=== PATIENT | female | born 1950 | race Caucasian/White ===

== ENCOUNTER → 2025-02-09 | Outpatient (CLI) | payer MEDICARE, OTHER, SELFPAY ==
--- NOTE | 2025-02-09 10:15 | US_ITS ---
PROCEDURE: ABD LIMITED W/ ELASTOGRAPHY REASON FOR EXAM: LIVER FIBROSIS, HEMANGIOMA COMPARISON: None. TECHNIQUE: Right upper quadrant abdominal ultrasound. [facility] ElastQ Imaging shear wave elastography for non-invasive assessment of liver tissue stiffness. [facility] EPIQ Elite. FINDINGS: LIVER: Size: Unremarkable Length: 16.6 cm Echotexture: Normal Contour: Normal Lesions: Stable 1.8 cm 1.8 cm 1.9 cm hemangioma in the left lobe of the liver. Elastography: EQI Med: 6.4 kPa EQI Med Jaret: 1.45 m/s IQR/Med: 17.5 %* GALLBLADDER: Normal COMMON BILE DUCT: Dilated measuring up to 9 mm. . PANCREAS: Normal Visualized portions of the right kidney are unremarkable. No right upper quadrant ascites. US/ABD Limited w/ Elastography IMPRESSION: Mild hepatic fibrosis. Small hemangioma in the left lobe of the liver. Dilated common bile duct. Reference Values: SRU <1.37 m/s (5.7kPa): No to mild fibrosis 1.37 m/s - 2.2 m/s: Moderate to severe fibrosis >2.2 m/s (15kPa): Significant fibrosis / cirrhosis METAVIR Score F2 or higher: 1.34 m/s (5.7kPa) F3 or higher: 1.55 m/s (7.3kPa) F4: 1.80 m/s (10kPa) * If the IQR/Med is >30%, the variance in the measurements is a large and the a ccuracy of the measurement may be in question. Reading Location: [facility]
[2025-02-09 10:53] LABS: Hematocrit 44.7 % (37-47); Hemoglobin 14.6 g/dL (12.0-15.0); Immature Granulocytes Count 0.040 X10^3/uL (0.0-0.0); Mean Corp Hgb Conc 32.7 g/dL (32-36); Mean Corpuscular Volume 97.2 fL (81-99); Mean Platelet Vol. 9.4 fl (6.2-12.0); NRBC Flagged by Analyzer 0 % (0-5); Platelet Count 264 K/mm3 (150-450); RBC Distribution Width CV 12.5 % (11.6-14.6); RBC Distribution Width SD 44.8 fl (35.1-43.9); Red Blood Count 4.60 M/mm3 (4.2-5.4); White Blood Count 8.4 K/mm3 (4.4-11.0)
[2025-02-09 11:10] LABS: Prothrombin Time (Protime)PT. 14.2 SECONDS (11.7-14.9)
[2025-02-09 12:02] LABS: AST(SGOT) 16 U/L (<=31); Alanine Aminotransfer ALT/SGPT 9 U/L (<=34); Albumin, Serum 4.1 g/dL (3.4-4.8); Alkaline Phosphatase 64 U/L (35-104); Anion Gap 12 (5-15); BUN 16 mg/dL (4-19); BUN/Creat Ratio 19.0 RATIO (10-20); Bilirubin, Direct 0.51 mg/dL (0.00-0.30); Calcium,Total 9.2 mg/dL (7.6-11.0); Carbon Dioxide 22.0 mmol/L (21.0-32.0); Chloride 105 mmol/L (98-108); Cholesterol 153 mg/dL (<=200); Ferritin 157 ng/mL (22-378); Globulin 3.1 g/dL (2.2-4.2); Glucose 94 mg/dL (70-99); Low Density Lipoprotein Calc. 76 mg/dL; Potassium 4.1 mmol/L (3.3-5.1); Triglycerides 127 mg/dL; Very Low Density Lipoprotein 25 mg/dL (5-40); cholesterol:hdl ratio screen 2.99
[2025-02-09 16:46] LABS: Iron Binding Capacity,Total 261 ug/dL (250-450)
[2025-02-09 16:51] LABS: CRP < 3.00 mg/L (0.0-3.0); Iron 135 ug/dL (50-170); Iron Binding Capacity,Unsat 126 ug/dL (228-428); Magnesium 2.2 mg/dL (1.5-2.2)
[2025-02-10 15:08] LABS: ANTINUCLEAR ANTIBODIES DIRECT Negative (Negative)
[2025-02-11 11:08] LABS: Albumin 3.7 g/dL (2.9-4.4); Anti-Smooth Muscle ABS 16 Units (0-19); Gamma Globulin 1.4 g/dL (0.4-1.8); HEPATITIS B SURFACE AG Negative (Negative); Hep C Antibodies Non Reactive (Non Reactive); Immunoglobulin A 226 mg/dL (64-422); Immunoglobulin G 1570 mg/dL (586-1602); Immunoglobulin M 77 mg/dL (26-217); PROEL- TOTAL PROTEIN 6.9 g/dL (6.0-8.5)
== END | disposition home or self-care (01) ==
LOC: US 09:50
PROVIDERS: PCP Family Medicine; Referring Provider Internal Medicine; Visit Provider Internal Medicine
DX: C22.0 Liver cell carcinoma (principal); E11.10 Type 2 diabetes mellitus with ketoacidosis without coma; R16.0 Hepatomegaly, not elsewhere classified; K70.9 Alcoholic liver disease, unspecified; D18.03 Hemangioma of intra-abdominal structures; B19.9 Unspecified viral hepatitis without hepatic coma; E78.5 Hyperlipidemia, unspecified; E03.9 Hypothyroidism, unspecified
CPT/HCPCS: 36415; 76705; 76981; 80053; 80061; 80074; 82105; 82248; 82390; 82525; 82728; 82784; 83036; 83516; 83540; 83550; 83735; 84100; 84165; 84443; 85025; 85610; 86038; 86140; 86225; 86235; 86334

== ENCOUNTER → 2025-02-11 | Outpatient (CLI) | payer MEDICARE, OTHER, SELFPAY ==
[2025-02-14 18:09] LABS: Copper, Serum or Plasma 85 ug/dL (80-158)
== END | disposition home or self-care (01) ==
LOC: LAB 15:10
PROVIDERS: PCP Family Medicine; Referring Provider Internal Medicine; Visit Provider Internal Medicine
DX: R17 Unspecified jaundice (principal); D18.03 Hemangioma of intra-abdominal structures
CPT/HCPCS: 82525

== ENCOUNTER 2025-05-02 10:39 | Emergency (ER) | payer MEDICARE, OTHER, SELFPAY ==
[2025-05-02] VITALS (18 sets, daily range): BP systolic 150–201; BP diastolic 78–105; PULSE 55–79; RESP 8–23; TEMP 35.8–36.7; O2SAT 94–100; BMI 30.5
--- NOTE | 2025-05-02 11:00 | EX.ED.DYSGE1 ---
HPI History of Present Illness Chief Complaint: Edema Informant: patient Narrative Narrative: Patient is a 75-year-old female with a history of HTN presenting around 1030 am with upper lip swelling. - Reports upper lip swelling onset around 0200 today; no swelling present at bedtime. - Denies involvement of tongue or throat, and no dyspnea. - Denies chest tightness, diaphoresis, or hives. - Denies headache, syncope, or near-syncope. - Denies swelling in hands or feet today. - Denies pain, but notes discomfort due to swelling. - Has experienced pruritus on feet and other body parts; one episode of foot swelling after severe pruritus, which resolved spontaneously. - On lisinopril, taken at night for many years; no other antihypertensive medications. - Started on Toprol 6 months ago for palpitations and syncope; reports resolution of symptoms since initiation. - Had a similar episode of upper lip swelling about a month ago, which resolved without treatment; did not seek medical attention at that time. - No recent changes in medications or new medications. - Denies exposure to known allergens yesterday. [facility] Medical History Cervical lymphadenopathy Vitamin D deficiency Anxiety HLD (hyperlipidemia) Palpitations History of alcohol abuse Elevated bilirubin Home Medications ?Medication ?Instructions ?Recorded ?Last Taken ?Type cholecalciferol (vitamin D3) 50 2,000 unit PO DAILY 11/25/13 11/24/13 History mcg (2,000 unit) tablet (Vitamin D3) hydrochlorothiazide 25 mg tablet 25 mg PO DAILY 11/25/13 11/24/13 History loratadine 10 mg tablet (Allergy 10 mg PO DAILY 11/25/13 11/24/13 History Relief (loratadine)) triamcinolone acetonide 55 mcg 2 spray DAILY 11/25/13 11/24/13 History nasal spray aerosol (Nasal Allergy) citalopram 30 mg capsule 30 mg PO QDAY 07/10/24 Unknown History trazodone 50 mg tablet 50 mg PO QDAY 07/10/24 Unknown History metoprolol succinate 25 mg 25 mg PO QDAY 02/19/25 Unknown History tablet,extended release 24 hr amlodipine 5 mg tablet 5 mg PO DAILY #30 tabs 05/02/25 Unknown Rx Allergy/AdvReac Type Severity Reaction Status Date / Time lisinopril Allergy Severe Angioedema Verified 05/02/25 10:41 Family History Father Arthritis Hypertension CVA (cerebral vascular accident) Surgical History History of colonoscopy Social History Smoking Status: Never smoker alcohol intake: current alcohol intake frequency: a few times a week substance use type: does not use ROS ROS ED Constitutional Constitutional ED: Denies chills or fever(s) Eyes Eyes: Denies change in vision or diplopia ENT ENT ED: Reports as per HPI and lip swelling; Denies rhinorrhea, sore throat, throat swelling or tongue swelling Cardiovascular Cardiovascular: Denies chest pain, leg edema, lightheadedness, palpitations or syncope Respiratory/Chest Respiratory/Chest: Denies cough or dyspnea Gastrointestinal Gastrointestinal: Denies abdominal pain, diarrhea, nausea or vomiting Genitourinary Genitourinary ED: Denies dysuria or hematuria Musculoskeletal Musculoskeletal: Denies back pain or neck pain Integumentary Denies abscess or rash Neurologic Neurologic: Denies headache(s), paresthesias or weakness Psychiatric Psychiatric: Denies anxiety or suicidal thoughts EXAM Physical Exam Const Vital Signs: 05/02/25 10:41 05/02/25 10:48 05/02/25 11:11 Temperature 96.4 F L Temperature Source Temporal Pulse Rate 62 77 Respiratory Rate 18 18 Respiratory Effort Normal Respiratory Pattern Normal Blood Pressure 201/105 H Blood Pressure Mean 137 Pulse Ox 100 100 Oxygen Delivery Method Room Air Room Air 05/02/25 12:00 05/02/25 12:17 05/02/25 12:19 Temperature Temperature Source Pulse Rate 56 L 55 L 55 L Respiratory Rate 18 8 L 11 L Respiratory Effort Respiratory Pattern Blood Pressure 183/88 H Blood Pressure Mean 114 Pulse Ox 97 97 97 Oxygen Delivery Method Room Air 05/02/25 12:30 05/02/25 12:45 05/02/25 12:56 Temperature Temperature Source Pulse Rate 55 L 57 L 57 L Respiratory Rate 17 19 H 18 Respiratory Effort Respiratory Pattern Blood Pressure 173/87 H 173/87 H Blood Pressure Mean 113 115 Pulse Ox 96 97 98 Oxygen Delivery Method Room Air 05/02/25 13:00 05/02/25 13:15 05/02/25 13:30 Temperature Temperature Source Pulse Rate 56 L 58 L 62 Respiratory Rate 20 H 20 H 21 H Respiratory Effort Respiratory Pattern Blood Pressure 165/88 H 167/93 H Blood Pressure Mean 112 109 Pulse Ox 94 96 95 Oxygen Delivery Method 05/02/25 13:45 05/02/25 14:00 05/02/25 14:15 Temperature Temperature Source Pulse Rate 57 L 60 61 Respiratory Rate 13 23 H 19 H Respiratory Effort Respiratory Pattern Blood Pressure 170/79 H Blood Pressure Mean 105 Pulse Ox 99 94 98 Oxygen Delivery Method 05/02/25 14:29 05/02/25 14:30 05/02/25 14:45 Temperature Temperature Source Pulse Rate 78 76 79 Respiratory Rate 18 14 18 Respiratory Effort Respiratory Pattern Blood Pressure 170/79 H 153/91 H Blood Pressure Mean 109 110 Pulse Ox 98 96 97 Oxygen Delivery Method Room Air 05/02/25 15:13 Temperature 98.0 F Temperature Source Pulse Rate 79 Respiratory Rate 18 Respiratory Effort Respiratory Pattern Blood Pressure 150/78 H Blood Pressure Mean 102 Pulse Ox 97 Oxygen Delivery Method Positive well nourished and well developed General Appearance ED: well developed and NAD HEENT Reports moist mucous membranes normocephalic and atraumatic Eyes PERRL and EOMs intact bilaterally Neck full ROM and supple Resp normal respiratory effort and clear to auscultation bilaterally Cardio regular rate, regular rhythm and no murmurs GI non-tender and non-distended Auscultation: normoactive bowel sounds Palpation: soft Back/Spine no CVA tenderness General Back: other FROM Extremity normal to inspection General Extremety ED: Negative for edema, pulses abnormal or tenderness General Extremity: Negative for edema or pulses abnormal Neuro oriented x3, CN's II-XII intact bilaterally and no sensory deficits noted Sensorium / Orientation: awake and alert Motor Exam: strength 5/5 throughout Skin no rashes or lesions noted and no wounds MDM MDM MDM Narrative Medical decision making narrative: Patient appears to have angioedema of the upper lip only. Her tongue and throat are not involved. She has no stridor or dyspnea, and her lungs are clear with no evidence of peripheral edema. This presentation is less likely anaphylactic and more likely angioedema due to an HARDY inhibitor, given her history. She will be observed here while we administer IV Solumedrol, Pepcid, and Benadryl, and we will monitor her closely. It is noted that her blood pressure is very high despite taking lisinopril last night, and she does not have any specific symptoms of the hypertension. Because we are giving these IV medications, including Benadryl, I will continue to monitor her blood pressure for now. The patient was observed for almost five hours while receiving the above medications. We evaluated her clinically several times. She showed mild improvement but did not completely resolve, with no worsening and no new symptoms. Her high blood pressure decreased without the need for emergent antihypertensives. Near discharge, it was 150/78 mmHg. I discussed her care with the on-call physician for Dr. Ruiz, who advised changing her lisinopril 20 mg to amlodipine 5 mg daily until she follows up. We plan to see her in the office today. I instructed the patient to discard the lisinopril or take it to a pharmacy for proper disposal, emphasizing that it is presumed to be the cause of this reaction unless proven otherwise. She understands, and we discussed reasons for her to return. Management Discussion w/another healthcare provider: PCP Discharge Plan Triage Chief Complaint: Edema ED Provider: Lex Chao Dx/Rx/DC Orders Clinical Impression: HARDY inhibitor-aggravated angioedema Instructions: ED Angioedema Prescriptions: New amlodipine 5 mg tablet 5 mg PO DAILY Qty: 30 0RF Continued citalopram 30 mg capsule 30 mg PO QDAY trazodone 50 mg tablet 50 mg PO QDAY metoprolol succinate 25 mg tablet extended release 24 hr 25 mg PO QDAY hydrochlorothiazide 25 MG tablet 25 mg PO DAILY Patient Comments: BLOOD PRESSURE loratadine [Allergy Relief (loratadine)] 10 MG tablet 10 mg PO DAILY Patient Comments: ALLERGIES, POST NASAL DRIP cholecalciferol (vitamin D3) [Vitamin D3] 2,000 UNIT tablet 2,000 unit PO DAILY Patient Comments: VITAMIN SUPPLEMENT triamcinolone acetonide [Nasal Allergy] 1 SPRAY aerosol,spray 2 spray NASAL DAILY Discontinued lisinopril 20 mg tablet 20 mg PO QDAY Primary Care Provider: Misty Ruiz Referrals: Misty Ruiz DO [Primary Care Provider, Medical] - 1-2 Weeks Print Language: Slovenian Disposition Disposition: Home, Self Care
--- OUTSIDE RECORDS SUMMARY | 2025-05-02 11:00 | XMS RPT_ITS | CCD ---
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 Name Role Phone Unavailable Primary Care Provider Unavailabl e DAISY PENN DO Primary Care Physician DAISY PENN DO Primary Care Physician DAISY PENN DO Attending Unavailable FILI DO, DAISY Primary Care Unavailable FILI DO, DAISY Attending Unavailable FILI DO, DAISY Primary Care Unavailable FILI DO, DAISY Attending Unavailable FILI DO, DAISY Primary Care Unavailable FILI DO, DAISY Attending Unavailable FILI DO, DAISY Primary Care Unavailable FILI DO, DAISY Attending Unavailable FILI DO, DAISY Primary Care Unavailable FILI DO, DAISY Attending Unavailable FILI DO, DAISY Primary Care Unavailable FILI DO, DAISY Attending Unavailable FILI DO, DAISY Primary Care Unavailable FILI DO, DAISY Primary Care Unavailable FILI DO, DAISY Attending Unavailable FILI DO, DAISY Attending Unavailable FILI DO, DAISY Primary Care Unavailable FILI DO, DAISY Attending Unavailable FILI DO, DAISY Primary Care Unavailable Jeffrey TAVAREZ, Dr. Huang Attending Provider [phone] Dr. Sal Murphy MD Referring Provider [phone] Dr. Daisy Penn DO Primary Care Provider [phone] Dr. Daisy Penn DO Referring Provider Daisy Penn Referring Unavailable Sal Murphy Attending Unavailable Daisy Penn Primary Care Unavailable Sal Murphy Referring Unavailable Sal Murphy Attending Unavailable Daisy Penn Primary Care Unavailable Sal Murphy Referring Unavailable Sal Murphy Attending Unavailable Sal Murphy Attending Unavailable Daisy Penn Referring Unavailable Daisy Penn Primary Care Unavailable Medications Current Medications Medication Drug Class(es) Dates Sig (Normalized) Sig (Original) calcium carbonate 1500 mg oral tablet (8 sources) Start: 01-30-2019 calcium (as carbonate) 600 mg oral tablet Dose : 600 mg = 1 tab(s), Oral, qDay, 0 Refill(s) Start Date: 01/30/19 Status: Ordered cholecalciferol 0.05 mg oral tablet (4 sources) Vitamin D Start: 11-25-2013 take 1 tablet by mouth once daily Cholecalciferol (Vitamin D3) (Vitamin D3) 2,000 UNIT tablet Active 2000 U PO DAILY November 25, 2013 12:00am Start: 12-18-2011 take 1 tablet by ajay th once daily Cholecalciferol, Vitamin D3, 5,000 unit Tab Take 1 tablet by mouth once daily. 0 12/18/2011 Active Comment on above: Take 1 tablet by ajay th once daily. Citalopram (15 sources) Serotonin Reuptake Inhibitor Start: 07-10-2024 take 1 capsule by mouth once daily Citalopram 30 mg capsule Active 30 mg PO daily July 10, 2024 1:00am Start: 02-19-2024 citalopram 30 mg oral capsule Dose : 30 mg = 1 cap(s), Oral, qDay, increased dose, # 90 cap(s), 1 Refill(s), Pharmacy: [facility] #30, Mild recurrent major depression Anxiety, 159.5, cm, 02/19/24 13:26:00 EDT, Height, kg, 02/19/24 13:26:00 EDT, Dosing Weight Start Date: 02/19/24 Status: Ordered Start: 11-25-2013 End: 07-10-2024 take 1 tablet by mouth at bedtime Citalopram 20 MG tablet Discontinued 20 mg PO AT BEDTIME November 25, 2013 12:00am July 10, 2024 9:38am Comment on above: Take 1 tablet by ajay th once daily. hydroCHLOROthiazide 25 mg oral tablet (12 sources) Thiazide Diuretic Start: hydroCHLOROthiazide 25 mg oral tablet Dose : 25 mg = 1 tab(s), Oral, qDay, # 90 tab(s), 3 Refill(s), Pharmacy: [facility] #30, Hypertension, 160.4, cm, 10/16/23 14:01:00 EDT, Height, kg, 10/16/23 14:01:00 EDT, Dosing Weight Start Date: 10/16/23 Status: Ordered Start: 11-25-2013 hydroCHLOROthi azide 25 mg oral tablet Dose : 25 mg = 1 tab(s), Oral, qDay, TAKE 1 TABLET BY MOUTH EVERY DAY, # 90 tab(s), 1 Refill(s), Pharmacy: [facility] #30, Hypertension, 158.5, cm, 06/19/23 15:00:00 EST, Height, kg, 06/19/23 15:00:00 EST, Dosing Weight Start Date: 06/19/23 Status: Ordered Comment on above: Take 1 tablet by ajay th once daily. lisinopril 20 mg oral tablet (15 sources) Angiotensin Converting Enzyme Inhibitor Start: 07-10-2024 take 1 tablet by mouth once daily Lisinopril 20 mg tablet Active 20 mg PO daily July 10, 2024 1:00am Start: 10-16-2023 lisinopril 20 mg oral tablet Dose : 20 mg = 1 tab(s), Oral, qDay, # 90 tab(s), 3 Refill(s), Pharmacy: [facility] #30, Hypertension, 160.4, cm, 10/16/23 14:01:00 EDT, Height, kg, 10/16/23 14:01:00 EDT, Dosing Weight Start Date: 10/16/23 Status: Ordered Start: 06-19-2023 lisinopril 20 mg oral tablet Dose : 20 mg = 1 tab(s), Oral, qDay, # 90 tab(s), 1 Refill(s), Pharmacy: [facility] #30, Hypertension, 158.5, cm, 06/19/23 15:00:00 EST, Height, kg, 06/19/23 15:00:00 EST, Dosing Weight Start Date: 06/19/23 Status: Ordered Start: 12-26-2022 lisinopril 20 mg oral tablet Dose : 20 mg = 1 tab(s), Oral, qDay, # 90 tab(s), 1 Refill(s), Pharmacy: [facility] #30, Hypertension, 160, cm, 12/26/22 14:08:00 EDT, Height, kg, 12/26/22 14:08:00 EDT, Dosing Weight Start Date: 12/26/22 Status: Ordered Start: 11-25-2013 End: 07-10-2024 take 1 tablet by mouth once daily Lisinopril 5 MG tablet Discontinued 5 mg PO DAILY November 25, 2013 12:00am July 10, 2024 9:38am Comment on above: Take 1 tablet by ajay th once daily. loratadine 10 mg oral tablet (4 sources) Start: 1 take 1 tablet by mouth once daily Loratadine (Allergy Relief (Loratadine)) 10 MG tablet Active 10 mg PO DAILY November 25, 2013 12:00am Comment on above: Take 1 tablet by ajay once daily. TAKE ONE(1) TABLET DAILY FOR ALLERGIES, POST NASAL DRIP 24 hr metoprolol succinate 25 mg extended release oral tablet (3 sources) beta-Adrenergic [place] Start: 5 take 1 tablet by mouth once daily Metoprolol Succinate 25 mg tablet extended release 24 hr Active 25 mg PO daily February 19, 2025 12:00am traZODone hydrochloride 50 mg oral tablet (15 sources) Serotonin Reuptake Inhibitor Start: take 1 tablet by mouth once daily Trazodone 50 mg tablet Active 50 mg PO daily July 10, 2024 1:00am Start: 02-19-2024 traZODone 50 m g oral tablet Dose : 50 mg = 1 tab(s), Oral, qHS, # 90 tab(s), 1 Refill(s), Pharmacy: [facility] #30, Mild recurrent major depression Anxiety, 159.5, cm, 02/19/24 13:26:00 EDT, Height, kg, 02/19/24 13:26:00 EDT, Dosing Weight Start Date: 02/19/24 Status: Ordered Start: 10-16-2023 traZODone 50 m g oral tablet Dose : 50 mg = 1 tab(s), Oral, qHS, # 90 tab(s), 1 Refill(s), Pharmacy: [facility] #30, Mild recurrent major depression Anxiety, 160.4, cm, 10/16/23 14:01:00 EDT, Height, kg, 10/16/23 14:01:00 EDT, Dosing Weight Start Date: 10/16/23 Status: Ordered Start: 06-19-2023 traZODone 50 m g oral tablet Dose : 50 mg = 1 tab(s), Oral, qHS, # 90 tab(s), 1 Refill(s), Pharmacy: [facility] #30, Mild recurrent major depression Anxiety, 158.5, cm, 06/19/23 15:00:00 EST, Height, kg, 06/19/23 15:00:00 EST, Dosing Weight Start Date: 06/19/23 Status: Ordered Start: 12-26-2022 traZODone 50 m g oral tablet Dose : 50 mg = 1 tab(s), Oral, qHS, # 90 tab(s), 1 Refill(s), Pharmacy: [facility] #30, Anxiety depression, 160, cm, 12/26/22 14:08:00 EDT, Height, kg, 12/26/22 14:08:00 EDT, Dosing Weight Start Date: 12/26/22 Status: Ordered Start: 03-26-2015 take 1 tablet by ajay th once daily at bedtime traZODone (DESYREL) 50 mg tablet Indications: Depressive disorder, not elsewhere classified Take 1 tablet by mouth daily at bedtime. 90 tablet 3 03/26/2015 Active Start: 11-25-2013 End: 07-10-2024 take 1 tablet by mouth at bedtime Trazodone 100 MG tablet Discontinued 100 mg PO AT BEDTIME November 25, 2013 12:00am July 10, 2024 9:38am Comment on above: Take 1 tablet by ajay th daily at bedtime. triamcinolone acetonide 0.055 mg/actuat metered dose nasal spray (3 sources) Corticosteroid Start: 11-25-2013 Triamcinolone Acetonide (Nasal Allergy) 1 SPRAY aerosol,spray Active 2 NMA NASAL DAILY November 25, 2013 12:00am Vitamin D3 (8 sources) Start: 01-30-2019 Vitamin D3 Dose : 5,000 unit(s) = 1 cap(s), Oral, qDay, 0 Refill(s) Start Date: 01/30/19 Status: Ordered Completed/Discontinued Medications Medication Drug Class(es) Dates Sig (Normalized) Sig (Original) [id number] actuat albuterol 0.09 mg/actuat metered dose inhaler (1 source) beta2-Adrenergic Agonist Start: 09-03-2015 take 2 puff(s) by inhalation every six hours as needed for wheezing albuterol HFA (PROVENTIL HFA, VENTOLIN HFA) 90 mcg/actuation inhaler Inhale 2 Puffs as instructed every 6 hours as needed for Wheezing/Shortness of Breath. 1 Inhaler 2 09/03/2015 Active Comment on above: Inhale 2 Puffs as in structed every 6 hours as needed for Wheezing/Shortness of Breath. benzonatate 100 mg oral capsule (2 sources) Non-narcotic Antitussive Start: 09-03-2015 take 1 capsule by mouth every eight hours as needed benzonatate (TESSALON PERLES) 100 mg capsule Take 1 capsule by mouth three times daily as needed for Cough. 20 capsule 0 09/03/2015 Active Start: 08-24-2014 take 1 capsule by mo uth every eight hours as needed Benzonatate (TESSALON) 200 mg capsule Take 200 mg by mouth three times daily as needed for Cough. 30 capsule 1 08/24/2014 Active Comment on above: Take 200 mg by mouth three times daily as needed for Cough. Take 1 capsule by mo uth three times daily as needed for Cough. Problems Active Problems Problem Classification Problem Date Documented Da te Episodic/Chronic Alcohol-related disorders (14 sources) Nondependent alcohol abuse, continuous; Translations: [Alcohol abuse, uncomplicated] Onset: 12-18-2011 12-18-2011 Chronic Anxiety disorders (11 sources) Mixed anxiety and depressive disorder; Translations: [Anxiety] Onset: 10-16-2023 01-29-2019 Chronic Cancer of liver and intrahepatic bile duct (1 source) Liver cell carcinoma; Translations: [Liver cell carcinoma] Onset: 03-06-2025 Chronic Cardiac dysrhythmias (1 source) Palpitations 06-20-2024 Episodic Coagulation and hemorrhagic disorders (1 source) Thrombocytopenia, unspecified; Translations: [Thrombocytopenia, unspecified] Onset: 08-19-2024 Chronic Diabetes mellitus with complications (1 source) Type 2 diabetes mellitus with ketoacidosis without coma; Translations: [Type 2 diabetes mellitus with ketoacidosis without coma] Onset: 08-19-2024 Chronic Disorders of lipid metabolism (12 sources) Hyperlipidemia; Translations: [Hyperlipidemia, unspecified] Onset: 10-16-2023 02-16-2021 Chronic Essential hypertension (18 sources) Essential hypertension; Translations: [Essential (primary) hypertension] Onset: 10-16-2023 10-11-2017 Chronic Lymphadenitis (9 sources) Cervical lymphadenopathy 11-16-2020 Episodic Malaise and fatigue (9 sources) Fatigue 11-16-2020 Episodic Mood disorders (10 sources) Depressive disorder; Translations: [Other specified depressive episodes] Onset: 10-16-2023 11-08-2005 Chronic Nutritional deficiencies (10 sources) Vitamin D deficiency; Translations: [Vitamin D deficiency, unspecified] Onset: 12-18-2011 12-18-2011 Chronic Other and unspecified benign neoplasm (6 sources) Hemangioma of liver; Translations: [Hemangioma of intra-abdominal structures] 08-11-2024 Episodic Other gastrointestinal disorders (6 sources) Stool color abnormal 04-17-2023 Episodic Other liver diseases (4 sources) Fatty (change of) liver, not elsewhere classified; Translations: [Metabolic dysfunction-associate d steatotic liver disease (MASLD)] 02-19-2025 Chronic Other liver diseases (9 sources) Elevated total bilirubin 12-26-2022 Episodic Other liver diseases (1 source) Jaundice; Translations: [Unspecified jaundice] Episodic Other liver diseases (3 sources) Increased bilirubin level; Translations: [Unspecified jaundice] 08-11-2024 Episodic Other nutritional; endocrine; and metabolic disorders (3 sources) Body mass index 30+ - obesity 10-16-2023 Chronic Other screening for suspected conditions (not mental disorders or infectious disease) (9 sources) Viral screening status 07-05-2022 Episodic Other upper respiratory disease (1 source) Allergic rhinitis; Translations: [Allergic rhinitis, unspecified] 11-08-2005 Chronic Residual codes; unclassified (9 sources) Needs influenza immunization 05-20-2020 Episodic Residual codes; unclassified (9 sources) Requires vaccination 05-20-2020 Episodic Syncope (4 sources) Syncope and collapse; Translations: [Syncope] 06-20-2024 Episodic Thyroid disorders (1 source) Hypothyroidism, unspecified; Translations: [Hypothyroidism, unspecified] Onset: 08-19-2024 Chronic Unclassified (9 sources) Never used tobacco 07-05-2022 Unclassified (20 sources) Patient encounter status 02-15-2021 Past or Other Problems Problem Classification Problem Date Documented Da te Episodic/Chronic Diabetes mellitus without complication (1 source) Hyperglycemia; Translations: [Hyperglycemia, unspecified] Onset: 12-18-2011 12-18-2011 Episodic Hepatitis (1 source) Unspecified viral hepatitis without hepatic coma; Translations: [Unspecified viral hepatitis without hepatic coma] Onset: 08-19-2024 Episodic Other and unspecified benign neoplasm (1 source) Hemangioma of intra-abdominal structures; Translations: [Hemangioma of intra-abdominal structures] Onset: 08-19-2024 Episodic Other liver diseases (3 sources) Unspecified jaundice; Translations: [Unspecified jaundice] Onset: 10-16-2023 Episodic Other liver diseases (1 source) Hepatomegaly, not elsewhere classified; Translations: [Hepatomegaly, not elsewhere classified] Onset: 08-19-2024 Episodic Results Test Name Value Interpretation Reference Range Facility Gastroenterology Visit Repor ton 02-19-2025 Gastroenterology Visit Report [facility] [address] [place] [address] OFFICE VISIT Date of Service: 02/19/25 MR#: [id number] Acct: [id number] Name: YVES ORR Rep #: [id number] : 1950 Provider: Dr. 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 Accompanied by: Self Is patient in pain?: No Allergies No Known Allergies Allergy (Verified 02/19/25 13:42) Medications ???Medication ???Instructions ???Recorded ???Confirmed ???Type cholecalciferol (vitamin D3) 50 2,000 unit PO DAILY 11/25/1302/19 History mcg (2,000 unit) tablet (Vitamin D3) hydrochlorothiazide 25 mg tablet 25 mg PO DAILY 11/25/13 02/19/25 H istory loratadine 10 mg tablet (Allergy 10 mg PO DAILY 11/25/13 02/19/25 H istory Relief (loratadine)) triamcinolone acetonide 55 mcg 2 spray DAILY 11/25/13 02/19/25 Hi story nasal spray aerosol (Nasal Allergy) citalopram 30 mg capsule 30 mg PO QDAY 07/10/24 02/19/25 Hi story lisinopril 20 mg tablet 20 mg PO QDAY 07/10/24 02/19/25 Hi story trazodone 50 mg tablet 50 mg PO QDAY 07/10/24 02/19/25 Hi story metoprolol succinate 25 mg 25 mg PO QDAY 02/19/25 02/19/25 Hi story tablet,extended release 24 hr Have you fallen in the past year?: No PFSH Medical History Cervical lymphadenopathy Vitamin D deficiency Anxiety HLD (hyperlipidemia) Palpitations History of alcohol abuse Elevated bilirubin Surgical History History of colonoscopy Family History Father Arthritis Hypertension CVA (cerebral vascular accident) Social History Smoking Status: Never smoker alcohol intake: current alcohol intake frequency: a few times a week substance use type: does not use HPI HPI Chief Complaint: Follow Up Details: YVES ORR, is a 74 F who presents to the office today for Follow up OV 1.27.25- PCP referred for elevated bilirubin and hx of alcohol abuse. PMH includes HTN, anxiety, depression, HLD. Pt states she overall feels well. States she currently drinks 5 beers a week. Denies dizziness, SOB, Confusion, swelling, abdominal pain, bowel changes. Medical record from PCP office reviewed. TB 1.6 in June 2024 and was 1.2 in September 2023. Serum bilirubin 3.5. Liver enzymes ALT, AST, ALP in normal range. Glucose 91. Fasting profile TG 108, TC 161, LDL 91 in normal range. TSH 2.43. Vitamin D 25-hydroxy normal. No PT/INR. ?US abd/ elastography 02.09.25- Liver measures 16.6cm, Stiffness 6.4 kPa 02.09.25 Fib-4??? 1.52 ?MELDna-??? 9 OV 8.25 - Patient is here for a follow up and states she is also here to go over her blood work and she also had a ultrasound that was done here at [facility]. Patient states that she has no symptoms and she has been doing good. ROS Const Constitutional: Positive for fatigue; No fever(s), weakness or weight change ENT ENT: No difficulty swallowing Resp Respiratory: No shortness of breath or wheezing Cardio Cardiology: Positive for lightheadedness; No chest pain at rest or dyspnea on exertion Gastro GI: No abdominal pain, belching, bloating, change in bowel habits, change in stool character, coffee ground emesis, constipation, cramping, diarrhea, heartburn, difficulty swallowing, feeling full early, excessive flatus, incontinent of stools, Vomiting blood/hematemesis, Blood in stool, loose stools, Black,tarry stools, nausea/dyspepsia, pain with swallowing, vomiting or other Genitourinary-Female: No difficulty urinating or burning urination Musc Musculoskeletal: No joint pain Skin Skin: No yellowing of the eye or itchy eyes Neuro Neurology: No abnormal movements, behavioral changes, weakness or lack of coordination Psych Psychiatric: Positive for anxiety, No behavioral changes and Positive for depression Endo Endocrine: Positive for fatigue; No weight change Aller/Imm Allergy/Immunologic: No itchy eyes or wheezing Sridhar/Lymp Hematologic/Lymphatic: No easy bleeding or easy bruising Exam Const General: cooperative, no acute distress and well developed Nutritional Appearance: obese Orientation: alert, awake and oriented x3 Other: BMI 3 (more content not included)... Normal [facility] Copper, Serum or Plasmaon COPPER, SERUM 85 ug/dL Normal 80-158 [facility] Comment on above: Order Comment: Test( s) [id number], Serum or Plasma was developed and its performance characteristics determined by [employer]. It has not been cleared or approved by the Food and Drug Administration. Result Comment: Dete ction Limit = 5 Performed at: [address] [id number] Systems Integration Advisor: Shobha Yañez MD, Phone: [phone] Performed By: #### L 3300.0100 #### [facility] [address] [place], [place], [id number] AFP, Tumor Markeron 02-12-20 AFP TUMOR KIM 2.8 ng/mL Normal 0.0-9.2 [facility] Comment on above: Order Comment: Test( s) [id number], Serum or Plasmawas developed and its performance characteristicsdetermined by [employer]. It has not been cleared or approvedby the Food and Drug Administration.NSerum ELF test Result Comment: [employer] Electrochemiluminescence Immunoassay (ECLIA) Values obtained with different assay methods or kits cannot be used interchangeably. Results cannot be interpreted as absolute evidence of the presence or absence of malignant disease. This test is not interpretable in females. Performed By: #### L [id number], L800.1280, L501.5200, L503.6550, L3300.0700, L501.6710, L100.0100, L300.3900, L500.4050, L803.2200, L3100.3425, L3000.0375, L3100.5450, L501.2300, L501.4700, L501.9985, L3400.0700, L500.4100, L3410.9992, L503.6030 ####[facility] [address] [place], [place], [address] ODALYS w/ Reflex Mult Confirmon 02-11-2025 ANTI-DNA (DS)AB TNP Normal [facility] Comment on above: Performed By: #### L [id number], L800.1280, L501.5200, L503.6550, L3300.0700, L501.6710, L100.0100, L300.3900, L500.4050, L803.2200, L3100.3425, L3000.0375, L3100.5450, L501.2300, L501.4700, L501.9985, L3400.0700, L500.4100, L3410.9992, L503.6030 #### [facility] [address] [place], [address] ANTI-SS-A TNP Normal [facility] Comment on above: Performed By: #### L [id number], L800.1280, L501.5200, L503.6550, L3300.0700, L501.6710, L100.0100, L300.3900, L500.4050, L803.2200, L3100.3425, L3000.0375, L3100.5450, L501.2300, L501.4700, L501.9985, L3400.0700, L500.4100, L3410.9992, L503.6030 #### [facility] [address] [place], [address] ANTI-SS-B TNP Normal [facility] Comment on above: Performed By: #### L [id number], L800.1280, L501.5200, L503.6550, L3300.0700, L501.6710, L100.0100, L300.3900, L500.4050, L803.2200, L3100.3425, L3000.0375, L3100.5450, L501.2300, L501.4700, L501.9985, L3400.0700, L500.4100, L3410.9992, L503.6030 #### [facility] [address] [place], [address] Anti-Smooth Muscle ABSon ANTISMOOTH MUSC 16 Units Normal 0-19 [facility] Comment on above: Order Comment: Test( s) [id number], Serum or Plasmawas developed and its performance characteristicsdetermined by [employer]. It has not been cleared or approvedby the Food and Drug Administration. Result Comment: Nega tive 0 - 19 Weak positive 20 - 30 Moderate to strong positive >30 Actin Antibodies are found in 52-85% of patients with autoimmune hepatitis or chronic active hepatitis and in 22% of patients with primary biliary cirrhosis. Performed By: #### L [id number], L800.1280, L501.5200, L503.6550, L3300.0700, L501.6710, L100.0100, L300.3900, L500.4050, L803.2200, L3100.3425, L3000.0375, L3100.5450, L501.2300, L501.4700, L501.9985, L3400.0700, L500.4100, L3410.9992, L503.6030 ####[facility] [address] [place], [address] Ceruloplasminon 02-11-2025 CERULOPLASMIN 20.9 mg/dL Normal 19.0-39.0 [facility] Comment on above: Order Comment: Test( s) [id number], Serum or Plasmawas developed and its performance characteristicsdetermined by [employer]. It has not been cleared or approvedby the Food and Drug Administration. Performed By: #### L 501.9520, L800.1280, L501.5200, L503.6550, L3300.0700, L501.6710, L100.0100, L300.3900, L500.4050, L803.2200, L3100.3425, L3000.0375, L3100.5450, L501.2300, L501.4700, L501.9985, L3400.0700, L500.4100, L3410.9992, L503.6030 ####[facility] [address] [place], [place], [id number] Hepatitis Panel Acuteon 07-3 COMMENT Comment Normal . [facility] Comment on above: Order Comment: Test( s) [id number], Serum or Plasmawas developed and its performance characteristicsdetermined by [employer]. It has not been cleared or approvedby the Food and Drug Administration. Result Comment: Not infected with HCV unless early or acute infection is suspected (which may be delayed in an immunocompromised individual), or other evidence exists to indicate HCV infection. Performed By: #### L 501.9520, L800.1280, L501.5200, L503.6550, L3300.0700, L501.6710, L100.0100, L300.3900, L500.4050, L803.2200, L3100.3425, L3000.0375, L3100.5450, L501.2300, L501.4700, L501.9985, L3400.0700, L500.4100, L3410.9992, L503.6030 ####[facility] [address] [facility] [place], [address] HEP B CORE,IgM Negative Normal Negative [facility] Comment on above: Order Comment: Test( s) [id number], Serum or Plasmawas developed and its performance characteristicsdetermined by [employer]. It has not been cleared or approvedby the Food and Drug Administration. Performed By: #### L 501.9520, L800.1280, L501.5200, L503.6550, L3300.0700, L501.6710, L100.0100, L300.3900, L500.4050, L803.2200, L3100.3425, L3000.0375, L3100.5450, L501.2300, L501.4700, L501.9985, L3400.0700, L500.4100, L3410.9992, L503.6030 ####[facility] [address] [facility] [place], [place], [id number] HEP B SURF AG Negative Normal Negative [facility] Comment on above: Order Comment: Test( s) [id number], Serum or Plasmawas developed and its performance characteristicsdetermined by [employer]. It has not been cleared or approvedby the Food and Drug Administration. Performed By: #### L 501.9520, L800.1280, L501.5200, L503.6550, L3300.0700, L501.6710, L100.0100, L300.3900, L500.4050, L803.2200, L3100.3425, L3000.0375, L3100.5450, L501.2300, L501.4700, L501.9985, L3400.0700, L500.4100, L3410.9992, L503.6030 ####[facility] [address] [facility] [place], [address] HEP C VIRUS AB Non-Reactive Normal Non Reactive [facility] Comment on above: Order Comment: Test( s) 524559-Aodkqa, Serum or Plasmawas developed and its performance characteristicsdetermined by [employer]. It has not been cleared or approvedby the Food and Drug Administration. Performed By: #### L 501.9520, L800.1280, L501.5200, L503.6550, L3300.0700, L501.6710, L100.0100, L300.3900, L500.4050, L803.2200, L3100.3425, L3000.0375, L3100.5450, L501.2300, L501.4700, L501.9985, L3400.0700, L500.4100, L3410.9992, L503.6030 ####[facility] [address] [facility] [place], [address] HEPATITIS A-IgM Negative Normal Negative [facility] Comment on above: Order Comment: Test( s) 734555-Ejjami, Serum or Plasmawas developed and its performance characteristicsdetermined by [employer]. It has not been cleared or approvedby the Food and Drug Administration. Result Comment: A ne gative anti-HAV IgM result suggests no recent or current HAV infection. Performed By: #### L 501.9520, L800.1280, L501.5200, L503.6550, L3300.0700, L501.6710, L100.0100, L300.3900, L500.4050, L803.2200, L3100.3425, L3000.0375, L3100.5450, L501.2300, L501.4700, L501.9985, L3400.0700, L500.4100, L3410.9992, L503.6030 ####[facility] [address] [facility]. [place], [place], [id number] SAUL + Protein Elect, Serumon 02-11-2025 Albumin [Mass/Vol] 3.7 g/dL Normal 2.9-4.4 [facility] Comment on above: Order Comment: Test( s) 527308-Bkjqek, Serum or Plasmawas developed and its performance characteristicsdetermined by [employer]. It has not been cleared or approvedby the Food and Drug Administration.YSerum ELF test Performed By: #### L 501.9520, L800.1280, L501.5200, L503.6550, L3300.0700, L501.6710, L100.0100, L300.3900, L500.4050, L803.2200, L3100.3425, L3000.0375, L3100.5450, L501.2300, L501.4700, L501.9985, L3400.0700, L500.4100, L3410.9992, L503.6030 ####[facility] [address] [facility]. [place], [place], [id number] Albumin/Globulin [Mass ratio] 1.2 {ratio} Normal 0.7-1.7 [facility] Comment on above: Order Comment: Test( s) 811197-Sfuswn, Serum or Plasmawas developed and its performance characteristicsdetermined by [employer]. It has not been cleared or approvedby the Food and Drug Administration.YSerum ELF test Performed By: #### L 501.9520, L800.1280, L501.5200, L503.6550, L3300.0700, L501.6710, L100.0100, L300.3900, L500.4050, L803.2200, L3100.3425, L3000.0375, L3100.5450, L501.2300, L501.4700, L501.9985, L3400.0700, L500.4100, L3410.9992, L503.6030 ####[facility] [address] [place], [address] DFZEL-4-BJPG 0.2 g/dL Normal 0.0-0.4 [facility] Comment on above: Order Comment: Test( s) 765050-Robtta, Serum or Plasmawas developed and its performance characteristicsdetermined by [employer]. It has not been cleared or approvedby the Food and Drug Administration.YSerum ELF test Performed By: #### L 501.9520, L800.1280, L501.5200, L503.6550, L3300.0700, L501.6710, L100.0100, L300.3900, L500.4050, L803.2200, L3100.3425, L3000.0375, L3100.5450, L501.2300, L501.4700, L501.9985, L3400.0700, L500.4100, L3410.9992, L503.6030 ####[facility] [address] [place], [address] TBXHP-4-SAPI 0.6 g/dL Normal 0.4-1.0 [facility] Comment on above: Order Comment: Test( s) 971378-Jqebnv, Serum or Plasmawas developed and its performance characteristicsdetermined by [employer]. It has not been cleared or approvedby the Food and Drug Administration.YSerum ELF test Performed By: #### L 501.9520, L800.1280, L501.5200, L503.6550, L3300.0700, L501.6710, L100.0100, L300.3900, L500.4050, L803.2200, L3100.3425, L3000.0375, L3100.5450, L501.2300, L501.4700, L501.9985, L3400.0700, L500.4100, L3410.9992, L503.6030 ####[facility] [address] [place], [place], [id number] BETA GLOBULIN 0.9 g/dL Normal 0.7-1.3 [facility] Comment on above: Order Comment: Test( s) 679377-Ilhlsg, Serum or Plasmawas developed and its performance characteristicsdetermined by [employer]. It has not been cleared or approvedby the Food and Drug Administration.YSerum ELF test Performed By: #### L 501.9520, L800.1280, L501.5200, L503.6550, L3300.0700, L501.6710, L100.0100, L300.3900, L500.4050, L803.2200, L3100.3425, L3000.0375, L3100.5450, L501.2300, L501.4700, L501.9985, L3400.0700, L500.4100, L3410.9992, L503.6030 ####[facility] [address] [place], [place], [address] GAMMA GLOBULIN 1.4 g/dL Normal 0.4-1.8 [facility] Comment on above: Order Comment: Test( s) 804626-Dghhvq, Serum or Plasmawas developed and its performance characteristicsdetermined by [employer]. It has not been cleared or approvedby the Food and Drug Administration.YSerum ELF test Performed By: #### L 501.9520, L800.1280, L501.5200, L503.6550, L3300.0700, L501.6710, L100.0100, L300.3900, L500.4050, L803.2200, L3100.3425, L3000.0375, L3100.5450, L501.2300, L501.4700, L501.9985, L3400.0700, L500.4100, L3410.9992, L503.6030 ####[facility] [address] [facility] [place], [address] Globulin (S) [Mass/Vol] 3.2 g/dL Normal 2.2-3.9 [facility] Comment on above: Order Comment: Test( s) 116528-Ursovt, Serum or Plasmawas developed and its performance characteristicsdetermined by [employer]. It has not been cleared or approvedby the Food and Drug Administration.YSerum ELF test Performed By: #### L 501.9520, L800.1280, L501.5200, L503.6550, L3300.0700, L501.6710, L100.0100, L300.3900, L500.4050, L803.2200, L3100.3425, L3000.0375, L3100.5450, L501.2300, L501.4700, L501.9985, L3400.0700, L500.4100, L3410.9992, L503.6030 ####[facility] [address] [facility]. [place], [place], [id number] SAUL RESULT,S Comment Normal . [facility] Comment on above: Order Comment: Test( s) 257735-Ksnccl, Serum or Plasmawas developed and its performance characteristicsdetermined by [employer]. It has not been cleared or approvedby the Food and Drug Administration.YSerum ELF test Result Comment: No m onoclonality detected. Performed By: #### L 501.9520, L800.1280, L501.5200, L503.6550, L3300.0700, L501.6710, L100.0100, L300.3900, L500.4050, L803.2200, L3100.3425, L3000.0375, L3100.5450, L501.2300, L501.4700, L501.9985, L3400.0700, L500.4100, L3410.9992, L503.6030 ####[facility] [address] [place], [place], [address] IMMUNOGLOB A QN 226 mg/dL Normal 64-422 [facility] Comment on above: Order Comment: Test( s) 618041-Hlsusc, Serum or Plasmawas developed and its performance characteristicsdetermined by [facility]. It has not been cleared or approvedby the Food and Drug Administration.YSerum ELF test Performed By: #### L 501.9520, L800.1280, L501.5200, L503.6550, L3300.0700, L501.6710, L100.0100, L300.3900, L500.4050, L803.2200, L3100.3425, L3000.0375, L3100.5450, L501.2300, L501.4700, L501.9985, L3400.0700, L500.4100, L3410.9992, L503.6030 ####[facility] [address] [place], [place], [address] IMMUNOGLOB G QN 1570 mg/dL Normal 586-1602 [facility] Comment on above: Order Comment: Test( s) 926076-Tcnvxq, Serum or Plasmawas developed and its performance characteristicsdetermined by [employer]. It has not been cleared or approvedby the Food and Drug Administration.YSerum ELF test Performed By: #### L 501.9520, L800.1280, L501.5200, L503.6550, L3300.0700, L501.6710, L100.0100, L300.3900, L500.4050, L803.2200, L3100.3425, L3000.0375, L3100.5450, L501.2300, L501.4700, L501.9985, L3400.0700, L500.4100, L3410.9992, L503.6030 ####[facility] [address] [place], [place], [address] IMMUNOGLOB M QN 77 mg/dL Normal 26-217 [facility] Comment on above: Order Comment: Test( s) 659495-Tewjnk, Serum or Plasmawas developed and its performance characteristicsdetermined by [employer]. It has not been cleared or approvedby the Food and Drug Administration.YSerum ELF test Performed By: #### L 501.9520, L800.1280, L501.5200, L503.6550, L3300.0700, L501.6710, L100.0100, L300.3900, L500.4050, L803.2200, L3100.3425, L3000.0375, L3100.5450, L501.2300, L501.4700, L501.9985, L3400.0700, L500.4100, L3410.9992, L503.6030 ####[facility] [address] [place], [address] M-Ian Not Observed Normal Not Observed [facility] Comment on above: Order Comment: Test( s) 670244-Sdkrak, Serum or Plasmawas developed and its performance characteristicsdetermined by [employer]. It has not been cleared or approvedby the Food and Drug Administration.YSerum ELF test Performed By: #### L 501.9520, L800.1280, L501.5200, L503.6550, L3300.0700, L501.6710, L100.0100, L300.3900, L500.4050, L803.2200, L3100.3425, L3000.0375, L3100.5450, L501.2300, L501.4700, L501.9985, L3400.0700, L500.4100, L3410.9992, L503.6030 ####[facility] [address] [facility] [place], [address] NOTE: Comment Normal . [facility] Comment on above: Order Comment: Test( s) 363686-Zngrkc, Serum or Plasmawas developed and its performance characteristicsdetermined by [facility]. It has not been cleared or approvedby the Food and Drug Administration.YSerum ELF test Result Comment: Prot ein electrophoresis scan will follow via computer, mail, or computer scientist delivery. Performed By: #### L 501.9520, L800.1280, L501.5200, L503.6550, L3300.0700, L501.6710, L100.0100, L300.3900, L500.4050, L803.2200, L3100.3425, L3000.0375, L3100.5450, L501.2300, L501.4700, L501.9985, L3400.0700, L500.4100, L3410.9992, L503.6030 ####[facility] [address] [facility] [place], [address] Protein [Mass/Vol] 6.9 g/dL Normal 6.0-8.5 [facility] Comment on above: Order Comment: Test( s) 731151-Sbytgc, Serum or Plasmawas developed and its performance characteristicsdetermined by [employer]. It has not been cleared or approvedby the Food and Drug Administration.YSerum ELF test Performed By: #### L 501.9520, L800.1280, L501.5200, L503.6550, L3300.0700, L501.6710, L100.0100, L300.3900, L500.4050, L803.2200, L3100.3425, L3000.0375, L3100.5450, L501.2300, L501.4700, L501.9985, L3400.0700, L500.4100, L3410.9992, L503.6030 ####[facility] [address] [facility] [place], [address] L3410.9992on 02-11-2025 [facility]. COMMENT Normal . [facility] Comment on above: Order Comment: ELF T [id number] TEST REF Result Comment: Test Ordered: [id number] Enhanced Liver Fibrosis (ELF) ELF(TM) Score 8.71 BN Reference Range: <9.80 ELF(TM) Score Interpretation: Risk cut-offs to assess the likelihood of progression to cirrhosis and liver-related clinical events within 3.9 years following baseline ELF score (IQR: 14.0-22.4 months)*: Lower risk < 9.80 Mid risk 9.80 - 11.29 Higher risk >11.29 Note: The ELF(TM) Score is a unitless numerical value. *Arsen SA, Elpidio VW, Yvrose T, et al. Selonsertib for patients with bridging fibrosis or compensated cirrhosis due to PRAJAPATI: Results from randomized phase III STELLAR trials. J Hepatol. 2020 Jan;73(1):26-39. Performed at: [facility] [address] [id number] Systems Integration Advisor: Shobha Yañez MD, Phone: [phone] Performed at: [facility] [address] [id number] Systems Integration Advisor: Cristopher Sneed PhD, Phone: [phone] Performed By: #### L 501.9520, L800.1280, L501.5200, L503.6550, L3300.0700, L501.6710, L100.0100, L300.3900, L500.4050, L803.2200, L3100.3425, L3000.0375, L3100.5450, L501.2300, L501.4700, L501.9985, L3400.0700, L500.4100, L3410.9992, L503.6030 ####[facility] [address] [place], [place], [address] Anti-Mitochondrial ABon - ANTIMITOCHON AB <20.0 Normal 0.0-20.0 [facility] Comment on above: Result Comment: Nega tive 0.0 - 20.0 Equivocal 20.1 - 24.9 Positive >24.9 Mitochondrial (M2) Antibodies are found in 90-96% of patients with primary biliary cirrhosis. Performed By: #### L 501.9520, L800.1280, L501.5200, L503.6550, L3300.0700, L501.6710, L100.0100, L300.3900, L500.4050, L803.2200, L3100.3425, L3000.0375, L3100.5450, L501.2300, L501.4700, L501.9985, L3400.0700, L500.4100, L3410.9992, L503.6030 ####[facility] [address] [facility] [place], [address] ABD Limited w/ Elastographyo n 02-09-2025 ABD Limited w/ Elastography [facility] Imaging Services [address] [place] [address] ABD Limited w/ Elastography MR#: [id number] Acct: [id number] Name: YVES ORR Rep #: [id number] : 1950 F 74 From: Miguel parr MD PCP: Dr. Daisy Penn, DO Status: REG CLI Study: ABD Limited w/ Elastography Date of Exam: 01/14 03/09 Exam# [id number] Ordering Dr: Sal Murphy MD PROCEDURE: ABD LIMITED W/ ELASTOGRAPHY REASON FOR EXAM: LIVER FIBROSIS, HEMANGIOMA COMPARISON: None. TECHNIQUE: Right upper quadrant abdominal ultrasound. [facility]andon ElastQ Imaging shear wave elastography for non- invasive assessment of liver tissue stiffness. [facility]andon EPIQ Elite. FINDINGS: LIVER: Size: Unremarkable Length: 16.6 cm Echotexture: Normal Contour: Normal Lesions: Stable 1.8 cm 1.8 cm 1.9 cm hemangioma in the left lobe of the liver. Elastography: EQI Med: 6.4 kPa EQI Med Jaret: 1.45 m/s IQR/Med: 17.5 %* GALLBLADDER: Normal COMMON BILE DUCT: Dilated measuring up to 9 mm. . PANCREAS: Normal Visualized portions of the right kidney are unremarkable. No right upper quadrant ascites. US/ABD Limited w/ Elastography IMPRESSION: Mild hepatic fibrosis. Small hemangioma in the left lobe of the liver. Dilated common bile duct. Reference Values: SRU <1.37 m/s (5.7kPa): No to mild fibrosis 1.37 m/s - 2.2 m/s: Moderate to severe fibrosis >2.2 m/s (15kPa): Significant fibrosis / cirrhosis METAVIR Score F2 or higher: 1.34 m/s (5.7kPa) F3 or higher: 1.55 m/s (7.3kPa) F4: 1.80 m/s (10kPa) * If the IQR/Med is >30%, the variance in the measurements is a large and the accuracy of the measurement may be in question. Reading Location: [facility] CC: Dr. Daisy Penn DO; Dr. Sal Murphy MD Armature Rewinder: Signed Normal [facility] Absolute lymphocyte countOrd ered By: Sal Murphy on 02-09-2025 Lymphocytes Auto (Unsp spec) [#/Vol] 1.21 10*3/uL 0.83-4.51 [facility] Absolute neutrophil countOrd ered By: Sal Murphy on 02-09-2025 Neutrophils (Bld) [#/Vol] 6.5 10*3/uL 2.0-7.7 [facility] Albumin Elph [Mass/Vol]Order ed By: Sal Murphy on 02-09-2025 Albumin [Mass/Vol] 3.7 g/dL 2.9-4.4 [facility] Anion gap in Serum or Plasma Ordered By: Sal Murphy on 02-09-2025 Anion gap [Moles/Vol] 12 mmol/L 5-15 [facility] Automated lymphocyte count a s percentage of total leukocytesOrdered By: Sal Murphy on 02-09-2025 Lymphocytes/100 WBC Auto (Unsp spec) 14.4 % Low 19-41 [facility] BUN/creatinine ratioOrdered By: Sal Murphy on 02-09-2025 Urea nitrogen/Creatinine [Mass ratio] 19.0 mg/mg 10-20 [facility] Basophil percentageOrdered B y: Sal Murphy on 02-09-2025 Basophils/100 WBC (Bld) 0.4 % 0-1 [facility] Bilirubin directOrdered By: Sal Murphy on 02-09-2025 Bilirubin.direct [Mass/Vol] 0.51 mg/dL High 0.00-0.30 [facility] Bilirubin, Directon 02-10-20 25 Bilirubin.direct [Mass/Vol] 0.51 mg/dL High 0.00-0.30 [facility] Comment on above: Performed By: #### L 501.9520, L800.1280, L501.5200, L503.6550, L3300.0700, L501.6710, L100.0100, L300.3900, L500.4050, L803.2200, L3100.3425, L3000.0375, L3100.5450, L501.2300, L501.4700, L501.9985, L3400.0700, L500.4100, L3410.9992, L503.6030 ####[facility] [address] [place], [address] Bilirubin, totalOrdered By: Sal Murphy on 02-09-2025 Bilirubin [Mass/Vol] 1.44 mg/dL High 0.00-1.30 [facility] CBC W/Diff, Automatedon 01-14 Absolute Lymph 1.21 X10 3/uL Normal 0.83-4.51 [facility] Comment on above: Performed By: #### L 501.9520, L800.1280, L501.5200, L503.6550, L3300.0700, L501.6710, L100.0100, L300.3900, L500.4050, L803.2200, L3100.3425, L3000.0375, L3100.5450, L501.2300, L501.4700, L501.9985, L3400.0700, L500.4100, L3410.9992, L503.6030 #### [facility] [address] [place], [address] (936) Absolute Neut 6.5 X10 3/uL Normal 2.0-7.7 [facility] Comment on above: Performed By: #### L 501.9520, L800.1280, L501.5200, L503.6550, L3300.0700, L501.6710, L100.0100, L300.3900, L500.4050, L803.2200, L3100.3425, L3000.0375, L3100.5450, L501.2300, L501.4700, L501.9985, L3400.0700, L500.4100, L3410.9992, L503.6030 #### [facility] [address] [facility] [place], [place], [id number] (455) Basophils/100 WBC (Bld) 0.4 % Normal 0-1 [facility] Comment on above: Performed By: #### L 501.9520, L800.1280, L501.5200, L503.6550, L3300.0700, L501.6710, L100.0100, L300.3900, L500.4050, L803.2200, L3100.3425, L3000.0375, L3100.5450, L501.2300, L501.4700, L501.9985, L3400.0700, L500.4100, L3410.9992, L503.6030 #### [facility] [address] [facility] [place], [place], [id number] [phone] Eosinophils/100 WBC (Bld) 0.5 % Normal 0-5 [facility] Comment on above: Performed By: #### L 501.9520, L800.1280, L501.5200, L503.6550, L3300.0700, L501.6710, L100.0100, L300.3900, L500.4050, L803.2200, L3100.3425, L3000.0375, L3100.5450, L501.2300, L501.4700, L501.9985, L3400.0700, L500.4100, L3410.9992, L503.6030 #### [facility] [address] [facility] [place], [address] Erythrocyte distribution width (RBC) [Ratio] 12.5 % Normal 11.6-14.6 [facility] Comment on above: Performed By: #### L 501.9520, L800.1280, L501.5200, L503.6550, L3300.0700, L501.6710, L100.0100, L300.3900, L500.4050, L803.2200, L3100.3425, L3000.0375, L3100.5450, L501.2300, L501.4700, L501.9985, L3400.0700, L500.4100, L3410.9992, L503.6030 #### [facility] [address] [place], [address] Hematocrit (Bld) [Volume fraction] 44.7 % Normal 37-47 [facility] Comment on above: Performed By: #### L 501.9520, L800.1280, L501.5200, L503.6550, L3300.0700, L501.6710, L100.0100, L300.3900, L500.4050, L803.2200, L3100.3425, L3000.0375, L3100.5450, L501.2300, L501.4700, L501.9985, L3400.0700, L500.4100, L3410.9992, L503.6030 #### [facility] [address] [facility] [place], [address] Hemoglobin (Bld) [Mass/Vol] 14.6 g/dL Normal 12.0-15.0 [facility] Comment on above: Performed By: #### L 501.9520, L800.1280, L501.5200, L503.6550, L3300.0700, L501.6710, L100.0100, L300.3900, L500.4050, L803.2200, L3100.3425, L3000.0375, L3100.5450, L501.2300, L501.4700, L501.9985, L3400.0700, L500.4100, L3410.9992, L503.6030 #### [facility] [address] [place], [address] IG% 0.500 Normal 0.0-0.9 [facility] Comment on above: Result Comment: IG% - Immature Granulocytes (promyelocytes, myelocytes and metamyelocytes) > 1% indicates that a LEFT SHIFT is Present. Performed By: #### L 501.9520, L800.1280, L501.5200, L503.6550, L3300.0700, L501.6710, L100.0100, L300.3900, L500.4050, L803.2200, L3100.3425, L3000.0375, L3100.5450, L501.2300, L501.4700, L501.9985, L3400.0700, L500.4100, L3410.9992, L503.6030 #### [facility] [address] [place], [address] Lymphocytes/100 WBC (Bld) 14.4 % Low 19-41 [facility] Comment on above: Performed By: #### L 501.9520, L800.1280, L501.5200, L503.6550, L3300.0700, L501.6710, L100.0100, L300.3900, L500.4050, L803.2200, L3100.3425, L3000.0375, L3100.5450, L501.2300, L501.4700, L501.9985, L3400.0700, L500.4100, L3410.9992, L503.6030 #### [facility] [address] [place], [address] MCH (RBC) [Entitic mass] 31.7 pg Normal 27.0-32.0 [facility] Comment on above: Performed By: #### L 501.9520, L800.1280, L501.5200, L503.6550, L3300.0700, L501.6710, L100.0100, L300.3900, L500.4050, L803.2200, L3100.3425, L3000.0375, L3100.5450, L501.2300, L501.4700, L501.9985, L3400.0700, L500.4100, L3410.9992, L503.6030 #### [facility] [address] [facility] [place], [address] MCHC (RBC) [Mass/Vol] 32.7 g/dL Normal 32-36 [facility] Comment on above: Performed By: #### L 501.9520, L800.1280, L501.5200, L503.6550, L3300.0700, L501.6710, L100.0100, L300.3900, L500.4050, L803.2200, L3100.3425, L3000.0375, L3100.5450, L501.2300, L501.4700, L501.9985, L3400.0700, L500.4100, L3410.9992, L503.6030 #### [facility] [address] [facility] [address] [place], [place], [id number] MCV (RBC) [Entitic vol] 97.2 fL Normal 81-99 [facility] Comment on above: Performed By: #### L 501.9520, L800.1280, L501.5200, L503.6550, L3300.0700, L501.6710, L100.0100, L300.3900, L500.4050, L803.2200, L3100.3425, L3000.0375, L3100.5450, L501.2300, L501.4700, L501.9985, L3400.0700, L500.4100, L3410.9992, L503.6030 #### [facility] [address] [place], [place], [phone] (188) Monocytes/100 WBC (Bld) 7.4 % Normal 0-10 [facility] Comment on above: Performed By: #### L 501.9520, L800.1280, L501.5200, L503.6550, L3300.0700, L501.6710, L100.0100, L300.3900, L500.4050, L803.2200, L3100.3425, L3000.0375, L3100.5450, L501.2300, L501.4700, L501.9985, L3400.0700, L500.4100, L3410.9992, L503.6030 #### [facility] [address] [place], [place], [id number] (893) Neutrophils/100 WBC (Bld) 76.8 % High 47-70 [facility] Comment on above: Performed By: #### L 501.9520, L800.1280, L501.5200, L503.6550, L3300.0700, L501.6710, L100.0100, L300.3900, L500.4050, L803.2200, L3100.3425, L3000.0375, L3100.5450, L501.2300, L501.4700, L501.9985, L3400.0700, L500.4100, L3410.9992, L503.6030 #### [facility] [address] [place], [place], [phone] (066) Nucleated RBC (Bld) [#/Vol] 0 10*3/uL Normal 0-5 [facility] Comment on above: Performed By: #### L 501.9520, L800.1280, L501.5200, L503.6550, L3300.0700, L501.6710, L100.0100, L300.3900, L500.4050, L803.2200, L3100.3425, L3000.0375, L3100.5450, L501.2300, L501.4700, L501.9985, L3400.0700, L500.4100, L3410.9992, L503.6030 #### [facility] [address] [place], [place], [phone] (825) Platelet mean volume (Bld) [Entitic vol] 9.4 fL Normal 6.2-12.0 [facility] Comment on above: Performed By: #### L 501.9520, L800.1280, L501.5200, L503.6550, L3300.0700, L501.6710, L100.0100, L300.3900, L500.4050, L803.2200, L3100.3425, L3000.0375, L3100.5450, L501.2300, L501.4700, L501.9985, L3400.0700, L500.4100, L3410.9992, L503.6030 #### [facility] [address] [place], [place], [phone] (940) Platelets (Bld) [#/Vol] 264 10*3/uL Normal 150-450 [facility] Comment on above: Performed By: #### L 501.9520, L800.1280, L501.5200, L503.6550, L3300.0700, L501.6710, L100.0100, L300.3900, L500.4050, L803.2200, L3100.3425, L3000.0375, L3100.5450, L501.2300, L501.4700, L501.9985, L3400.0700, L500.4100, L3410.9992, L503.6030 #### [facility] [address] [place], [place], [id number] (504) RBC (Bld) [#/Vol] 4.60 10*6/uL Normal 4.2-5.4 [facility] Comment on above: Performed By: #### L 501.9520, L800.1280, L501.5200, L503.6550, L3300.0700, L501.6710, L100.0100, L300.3900, L500.4050, L803.2200, L3100.3425, L3000.0375, L3100.5450, L501.2300, L501.4700, L501.9985, L3400.0700, L500.4100, L3410.9992, L503.6030 #### [facility] [address] [place], [address] RDW SD 44.8 fl High 35.1-43.9 [facility] Comment on above: Performed By: #### L 501.9520, L800.1280, L501.5200, L503.6550, L3300.0700, L501.6710, L100.0100, L300.3900, L500.4050, L803.2200, L3100.3425, L3000.0375, L3100.5450, L501.2300, L501.4700, L501.9985, L3400.0700, L500.4100, L3410.9992, L503.6030 #### [facility] [address] [facility] [place], [place], [address] WBC (Bld) [#/Vol] 8.4 10*3/uL Normal 4.4-11.0 [facility] Comment on above: Performed By: #### L 501.9520, L800.1280, L501.5200, L503.6550, L3300.0700, L501.6710, L100.0100, L300.3900, L500.4050, L803.2200, L3100.3425, L3000.0375, L3100.5450, L501.2300, L501.4700, L501.9985, L3400.0700, L500.4100, L3410.9992, L503.6030 #### [facility] [address] [place], [place], [id number] CRPon 02-09-2025 C-REACTIVE PROT < 3.00 Normal 0.0-3.0 [facility] Comment on above: Performed By: #### L 501.9520, L800.1280, L501.5200, L503.6550, L3300.0700, L501.6710, L100.0100, L300.3900, L500.4050, L803.2200, L3100.3425, L3000.0375, L3100.5450, L501.2300, L501.4700, L501.9985, L3400.0700, L500.4100, L3410.9992, L503.6030 ####[facility] [address] [facility] [place], [place], [id number] Calculated very low density lipoprotein (VLDL) cholesterol measurementOrdered By: Sal Murphy on 02-09-2025 Calculated very low density lipoprotein (VLDL) cholesterol measurement 25 mg/dL 5-40 [facility] Carbon dioxide, total [Moles /volume] in Central venous bloodOrdered By: Sal Murphy on 02-09-2025 CO2 [Moles/Vol] 22.0 mmol/L 21.0-32.0 [facility] Chloride assayOrdered By: Shaka Murphy on 02-09-2025 Chloride [Moles/Vol] 105 mmol/L 98-108 [facility] Comprehensive Metabolic Prof ilon 02-09-2025 Albumin [Mass/Vol] 4.1 g/dL Normal 3.4-4.8 [facility] Comment on above: Order Comment: Serum ELF test Performed By: #### L 501.9520, L800.1280, L501.5200, L503.6550, L3300.0700, L501.6710, L100.0100, L300.3900, L500.4050, L803.2200, L3100.3425, L3000.0375, L3100.5450, L501.2300, L501.4700, L501.9985, L3400.0700, L500.4100, L3410.9992, L503.6030 #### [facility] [address] [place], [place], [address] Albumin/Globulin [Mass ratio] 1.3 {ratio} Normal 0.9-2.4 [facility] Comment on above: Order Comment: Serum ELF test Performed By: #### L 501.9520, L800.1280, L501.5200, L503.6550, L3300.0700, L501.6710, L100.0100, L300.3900, L500.4050, L803.2200, L3100.3425, L3000.0375, L3100.5450, L501.2300, L501.4700, L501.9985, L3400.0700, L500.4100, L3410.9992, L503.6030 #### [facility] [address] [place], [address] ALK PHOS 64 U/L Normal 35-104 [facility] Comment on above: Order Comment: Serum ELF test Performed By: #### L 501.9520, L800.1280, L501.5200, L503.6550, L3300.0700, L501.6710, L100.0100, L300.3900, L500.4050, L803.2200, L3100.3425, L3000.0375, L3100.5450, L501.2300, L501.4700, L501.9985, L3400.0700, L500.4100, L3410.9992, L503.6030 #### [facility] [address] [place], [place], [id number] ALT [Catalytic activity/Vol] 9 U/L Normal <=34 [facility] Comment on above: Order Comment: Serum ELF test Performed By: #### L 501.9520, L800.1280, L501.5200, L503.6550, L3300.0700, L501.6710, L100.0100, L300.3900, L500.4050, L803.2200, L3100.3425, L3000.0375, L3100.5450, L501.2300, L501.4700, L501.9985, L3400.0700, L500.4100, L3410.9992, L503.6030 #### [facility] [address] [place], [address] AST [Catalytic activity/Vol] 16 U/L Normal <=31 [facility] Comment on above: Order Comment: Serum ELF test Performed By: #### L 501.9520, L800.1280, L501.5200, L503.6550, L3300.0700, L501.6710, L100.0100, L300.3900, L500.4050, L803.2200, L3100.3425, L3000.0375, L3100.5450, L501.2300, L501.4700, L501.9985, L3400.0700, L500.4100, L3410.9992, L503.6030 #### [facility] [address] [place], [address] Bilirubin [Mass/Vol] 1.44 mg/dL High 0.00-1.30 [facility] Comment on above: Order Comment: Serum ELF test Performed By: #### L 501.9520, L800.1280, L501.5200, L503.6550, L3300.0700, L501.6710, L100.0100, L300.3900, L500.4050, L803.2200, L3100.3425, L3000.0375, L3100.5450, L501.2300, L501.4700, L501.9985, L3400.0700, L500.4100, L3410.9992, L503.6030 #### [facility] [address] [place], [place], [id number] (482) BUN/CRE 19.0 RATIO Normal 10-20 [facility] Comment on above: Order Comment: Serum ELF test Performed By: #### L 501.9520, L800.1280, L501.5200, L503.6550, L3300.0700, L501.6710, L100.0100, L300.3900, L500.4050, L803.2200, L3100.3425, L3000.0375, L3100.5450, L501.2300, L501.4700, L501.9985, L3400.0700, L500.4100, L3410.9992, L503.6030 #### [facility] [address] [place], [place], [id number] Calcium [Mass/Vol] 9.2 mg/dL Normal 7.6-11.0 [facility] Comment on above: Order Comment: Serum ELF test Performed By: #### L 501.9520, L800.1280, L501.5200, L503.6550, L3300.0700, L501.6710, L100.0100, L300.3900, L500.4050, L803.2200, L3100.3425, L3000.0375, L3100.5450, L501.2300, L501.4700, L501.9985, L3400.0700, L500.4100, L3410.9992, L503.6030 #### [facility] [address] [place], [address] Chloride [Moles/Vol] 105 mmol/L Normal 98-108 [facility] Comment on above: Order Comment: Serum ELF test Performed By: #### L 501.9520, L800.1280, L501.5200, L503.6550, L3300.0700, L501.6710, L100.0100, L300.3900, L500.4050, L803.2200, L3100.3425, L3000.0375, L3100.5450, L501.2300, L501.4700, L501.9985, L3400.0700, L500.4100, L3410.9992, L503.6030 #### [facility] [address] [place], [address] CO2 [Moles/Vol] 22.0 mmol/L Normal 21.0-32.0 [facility] Comment on above: Order Comment: Serum ELF test Performed By: #### L 501.9520, L800.1280, L501.5200, L503.6550, L3300.0700, L501.6710, L100.0100, L300.3900, L500.4050, L803.2200, L3100.3425, L3000.0375, L3100.5450, L501.2300, L501.4700, L501.9985, L3400.0700, L500.4100, L3410.9992, L503.6030 #### [facility] [address] [place], [address] Creatinine [Mass/Vol] 0.86 mg/dL Normal 0.70-1.20 [facility] Comment on above: Order Comment: Serum ELF test Performed By: #### L 501.9520, L800.1280, L501.5200, L503.6550, L3300.0700, L501.6710, L100.0100, L300.3900, L500.4050, L803.2200, L3100.3425, L3000.0375, L3100.5450, L501.2300, L501.4700, L501.9985, L3400.0700, L500.4100, L3410.9992, L503.6030 #### [facility] [address] [place], [address] GAP 12 Normal 5-15 [facility] Comment on above: Order Comment: Serum ELF test Performed By: #### L 501.9520, L800.1280, L501.5200, L503.6550, L3300.0700, L501.6710, L100.0100, L300.3900, L500.4050, L803.2200, L3100.3425, L3000.0375, L3100.5450, L501.2300, L501.4700, L501.9985, L3400.0700, L500.4100, L3410.9992, L503.6030 #### [facility] [address] [place], [address] GFR/1.73 sq M.predicted among non-blacks MDRD (S/P/Bld) [Vol rate/Area] 71 mL/min/{1.73_m2} Normal >60 [facility] Comment on above: Order Comment: Serum ELF test Result Comment: mL/m in/1.73m2 CKD-EPI Creatinine Equation (2020) Performed By: #### L 501.9520, L800.1280, L501.5200, L503.6550, L3300.0700, L501.6710, L100.0100, L300.3900, L500.4050, L803.2200, L3100.3425, L3000.0375, L3100.5450, L501.2300, L501.4700, L501.9985, L3400.0700, L500.4100, L3410.9992, L503.6030 #### [facility] [address] [place], [address] Globulin (S) [Mass/Vol] 3.1 g/dL Normal 2.2-4.2 [facility] Comment on above: Order Comment: Serum ELF test Performed By: #### L 501.9520, L800.1280, L501.5200, L503.6550, L3300.0700, L501.6710, L100.0100, L300.3900, L500.4050, L803.2200, L3100.3425, L3000.0375, L3100.5450, L501.2300, L501.4700, L501.9985, L3400.0700, L500.4100, L3410.9992, L503.6030 #### [facility] [address] [facility] [place], [place], [address] Glucose [Mass/Vol] 94 mg/dL Normal 70-99 [facility] Comment on above: Order Comment: Serum ELF test Performed By: #### L 501.9520, L800.1280, L501.5200, L503.6550, L3300.0700, L501.6710, L100.0100, L300.3900, L500.4050, L803.2200, L3100.3425, L3000.0375, L3100.5450, L501.2300, L501.4700, L501.9985, L3400.0700, L500.4100, L3410.9992, L503.6030 #### [facility] [address] [facility] [place], [place], [address] Potassium [Moles/Vol] 4.1 mmol/L Normal 3.3-5.1 [facility] Comment on above: Order Comment: Serum ELF test Performed By: #### L 501.9520, L800.1280, L501.5200, L503.6550, L3300.0700, L501.6710, L100.0100, L300.3900, L500.4050, L803.2200, L3100.3425, L3000.0375, L3100.5450, L501.2300, L501.4700, L501.9985, L3400.0700, L500.4100, L3410.9992, L503.6030 #### [facility] [address] [place], [address] Sodium [Moles/Vol] 139 mmol/L Normal 133-145 [facility] Comment on above: Order Comment: Serum ELF test Performed By: #### L 501.9520, L800.1280, L501.5200, L503.6550, L3300.0700, L501.6710, L100.0100, L300.3900, L500.4050, L803.2200, L3100.3425, L3000.0375, L3100.5450, L501.2300, L501.4700, L501.9985, L3400.0700, L500.4100, L3410.9992, L503.6030 #### [facility] [address] [place], [address] T PROT 7.2 g/dL Normal 5.9-8.4 [facility] Comment on above: Order Comment: Serum ELF test Performed By: #### L 501.9520, L800.1280, L501.5200, L503.6550, L3300.0700, L501.6710, L100.0100, L300.3900, L500.4050, L803.2200, L3100.3425, L3000.0375, L3100.5450, L501.2300, L501.4700, L501.9985, L3400.0700, L500.4100, L3410.9992, L503.6030 #### [facility] [address] [place], [address] Urea nitrogen [Mass/Vol] 16 mg/dL Normal 4-19 [facility] Comment on above: Order Comment: Serum ELF test Performed By: #### L 501.9520, L800.1280, L501.5200, L503.6550, L3300.0700, L501.6710, L100.0100, L300.3900, L500.4050, L803.2200, L3100.3425, L3000.0375, L3100.5450, L501.2300, L501.4700, L501.9985, L3400.0700, L500.4100, L3410.9992, L503.6030 #### [facility] [address] [place], [place], [id number] Eosinophil percentageOrdered By: Sal Murphy on 02-09-2025 Eosinophils/100 WBC (Bld) 0.5 % 0-5 [facility] Erythrocyte distribution wid th ratioOrdered By: [facility] on 02-09-2025 Erythrocyte distribution width (RBC) [Ratio] 12.5 % 11.6-14.6 [facility] Erythrocyte distribution wid th standard deviationOrdered By: [facility] on 02-09-2025 Erythrocyte distribution width (RBC) [Ratio] 44.8 fl High 35.1-43.9 [facility] Ferritinon 02-09-2025 Ferritin [Mass/Vol] 157 ng/mL Normal 22-378 [facility] Comment on above: Performed By: #### L 501.9520, L800.1280, L501.5200, L503.6550, L3300.0700, L501.6710, L100.0100, L300.3900, L500.4050, L803.2200, L3100.3425, L3000.0375, L3100.5450, L501.2300, L501.4700, L501.9985, L3400.0700, L500.4100, L3410.9992, L503.6030 ####[facility] [address] [facility]. [place], [place], [id number] Glomerular filtration rate ( GFR) estimation/1.73 sq m using serum, plasma, or whole bOrdered By: Sal Murphy on 02-09-2025 GFR/1.73 sq M.predicted among non-blacks MDRD (S/P/Bld) [Vol rate/Area] 71 mL/min/{1.73_m2} >60 [facility] Comment on above: mL/min/1.73m2 CKD-EP I Creatinine Equation (2020) Hematocrit Auto (Bld) [Volum e fraction]Ordered By: Sal Murphy on 02-09-2025 Hematocrit (Bld) [Volume fraction] 44.7 % 37-47 [facility] Hemoglobin A1con 02-09-2025 HbA1c (Bld) [Mass fraction] 5.3 % Normal <=5.6 [facility] Comment on above: Result Comment: Norm al < 5.7 % Prediabetic 5.7 - 6.4 % Diabetic >or= 6.5 % Please note range changes. Performed By: #### L 501.9520, L800.1280, L501.5200, L503.6550, L3300.0700, L501.6710, L100.0100, L300.3900, L500.4050, L803.2200, L3100.3425, L3000.0375, L3100.5450, L501.2300, L501.4700, L501.9985, L3400.0700, L500.4100, L3410.9992, L503.6030 #### [facility] [place], [address] Hemoglobin A1c percentageOrd ered By: Sal Murphy on 02-09-2025 HbA1c (Bld) [Mass fraction] 5.3 % <5.7 [facility] Comment on above: Normal < 5.7 % Predi abetic 5.7 - 6.4 % Diabetic >or= 6.5 % Please note range changes. Hemoglobin measurementOrdere d By: Sal Murphy on 02-09-2025 Hemoglobin (Bld) [Mass/Vol] 14.6 g/dL 12.0-15.0 [facility] Immature granulocytes/100 WB C Auto (Bld)Ordered By: Sal Murphy on 02-09-2025 Immature granulocytes/100 WBC (Bld) 0.500 % 0.0-0.9 [facility] Comment on above: IG% - Immature Granu locytes (promyelocytes, myelocytes and metamyelocytes) > 1% indicates that a LEFT SHIFT is Present. International normalized rat io (INR) calculationOrdered By: Sal Murphy on 02-09-2025 INR Coag (Bld) [Relative time] 1.1 {INR} [facility] Interpretation of serum or p lasma protein pattern by immunofixation (narrative resultOrdered By: Sal Murphy on 02-09-2025 Protein Fractions Immunofixation Matt [Interp] Not Observed g/dL Not Observed [facility] Iron measurement (mass/mass) Ordered By: Sal Murphy on 02-09-2025 Iron (Unsp spec) [Mass/Mass] 135 ug/dL 50-170 [facility] Iron+Iron Binding Capacityon 02-09-2025 Iron [Mass/Vol] 135 ug/dL Normal 50-170 [facility] Comment on above: Order Comment: Serum ELF test Performed By: #### L 501.9520, L800.1280, L501.5200, L503.6550, L3300.0700, L501.6710, L100.0100, L300.3900, L500.4050, L803.2200, L3100.3425, L3000.0375, L3100.5450, L501.2300, L501.4700, L501.9985, L3400.0700, L500.4100, L3410.9992, L503.6030 ####[facility] [address] [place], [address] UIBC 126 ug/dL Low 228-428 [facility] Comment on above: Order Comment: Serum ELF test Performed By: #### L 501.9520, L800.1280, L501.5200, L503.6550, L3300.0700, L501.6710, L100.0100, L300.3900, L500.4050, L803.2200, L3100.3425, L3000.0375, L3100.5450, L501.2300, L501.4700, L501.9985, L3400.0700, L500.4100, L3410.9992, L503.6030 ####[facility] [address] [place], [address] LDL calc ser/plasOrdered By: Sal Murphy on 02-09-2025 Cholesterol in LDL [Mass/Vol] 76 mg/dL [facility] Comment on above: Wuizvmcpwr=446-229 m g/dL & Higher Hbqj=907 mg/dL or greaterFriedwald Equation for LDL-C Laboratory - Chemistry and C hemistry - challengeOrdered By: Sal Murphy on 02-09-2025 AST [Catalytic activity/Vol] 16 U/L <32 [facility] Lipid Profileon 02-09-2025 CHOL:HDL 2.99 Normal [facility] Comment on above: Performed By: #### L 501.9520, L800.1280, L501.5200, L503.6550, L3300.0700, L501.6710, L100.0100, L300.3900, L500.4050, L803.2200, L3100.3425, L3000.0375, L3100.5450, L501.2300, L501.4700, L501.9985, L3400.0700, L500.4100, L3410.9992, L503.6030 #### [facility] [address] [place], [place], [id number] Cholesterol [Mass/Vol] 153 mg/dL Normal <=200 [facility] Comment on above: Result Comment: Chol esterol level, Desirable <200 mg/dL Borderline high cholesterol 200-239 mg/dL High cholesterol >=240 mg/dL Recommendations of the NCEP Adult Treatment Panel for the following risk-cutoff thresholds for the [place] population. Performed By: #### L 501.9520, L800.1280, L501.5200, L503.6550, L3300.0700, L501.6710, L100.0100, L300.3900, L500.4050, L803.2200, L3100.3425, L3000.0375, L3100.5450, L501.2300, L501.4700, L501.9985, L3400.0700, L500.4100, L3410.9992, L503.6030 #### [facility] [address] [place], [place], [id number] (877) Cholesterol in HDL [Mass/Vol] 51 mg/dL Normal [facility] Comment on above: Result Comment: Catie onal Cholesterol Education Program (NCEP) guidelines: <40 mg/dL: Low HDL-cholesterol (major risk factor for CHD) >= 60 mg/dL: High HDL-cholesterol (negative risk factor for CHD) HDL-cholesterol is affected by a number of factors, e.g. smoking, exercise, hormones, sex and age. Performed By: #### L 501.9520, L800.1280, L501.5200, L503.6550, L3300.0700, L501.6710, L100.0100, L300.3900, L500.4050, L803.2200, L3100.3425, L3000.0375, L3100.5450, L501.2300, L501.4700, L501.9985, L3400.0700, L500.4100, L3410.9992, L503.6030 #### [facility] [address] [place], [address] (064) Cholesterol in LDL [Mass/Vol] 76 mg/dL Normal [facility] Comment on above: Result Comment: Bord woxqkr=607-250 mg/dL Higher Fnne=458 mg/dL or greater Friedwald Equation for LDL-C Performed By: #### L 501.9520, L800.1280, L501.5200, L503.6550, L3300.0700, L501.6710, L100.0100, L300.3900, L500.4050, L803.2200, L3100.3425, L3000.0375, L3100.5450, L501.2300, L501.4700, L501.9985, L3400.0700, L500.4100, L3410.9992, L503.6030 #### [facility] [address] [place], [address] (220) Cholesterol in VLDL [Mass/Vol] 25 mg/dL Normal 5-40 [facility] Comment on above: Performed By: #### L 501.9520, L800.1280, L501.5200, L503.6550, L3300.0700, L501.6710, L100.0100, L300.3900, L500.4050, L803.2200, L3100.3425, L3000.0375, L3100.5450, L501.2300, L501.4700, L501.9985, L3400.0700, L500.4100, L3410.9992, L503.6030 #### [facility] [address] [place], [address] Triglyceride [Mass/Vol] 127 mg/dL Normal [facility] Comment on above: Result Comment: The drugs N-Acetylcysteine and Metamizole may falsely depress this assay. Normal range: <150 mg/dL Borderline High: 150-199 mg/dL High: 200-499 mg/dL Very High: >500 mg/dL Performed By: #### L 501.9520, L800.1280, L501.5200, L503.6550, L3300.0700, L501.6710, L100.0100, L300.3900, L500.4050, L803.2200, L3100.3425, L3000.0375, L3100.5450, L501.2300, L501.4700, L501.9985, L3400.0700, L500.4100, L3410.9992, L503.6030 #### [facility] [address] [place], [place], [id number] MCV (mean corpuscular volume ) determinationOrdered By: Sal Murphy on 02-09-2025 MCV (RBC) [Entitic vol] 97.2 fL 81-99 [facility] Magnesiumon 02-09-2025 Magnesium [Mass/Vol] 2.2 mg/dL Normal 1.5-2.2 [facility] Comment on above: Performed By: #### L 501.9520, L800.1280, L501.5200, L503.6550, L3300.0700, L501.6710, L100.0100, L300.3900, L500.4050, L803.2200, L3100.3425, L3000.0375, L3100.5450, L501.2300, L501.4700, L501.9985, L3400.0700, L500.4100, L3410.9992, L503.6030 ####[facility] [address] [place], [address] Magnesium measurement (mass/ volume)Ordered By: Sal Murphy on 02-09-2025 Magnesium (Unsp spec) [Mass/Vol] 2.2 mg/dL 1.5-2.2 [facility] Mean corpuscular hemoglobin (MCH) determinationOrdered By: Sal Murphy on 02-09-2025 MCH (RBC) [Entitic mass] 31.7 pg 27.0-32.0 [facility] Mean corpuscular hemoglobin concentration (MCHC) determinationOrdered By: Sal Murphy on 02-09-2025 MCHC (RBC) [Mass/Vol] 32.7 g/dL 32-36 [facility] Mean platelet volume determi nationOrdered By: Sal Murphy on 02-09-2025 Platelet mean volume (Bld) [Entitic vol] 9.4 fL 6.2-12.0 [facility] Monocyte percentageOrdered B y: Sal Murphy on 02-09-2025 Monocytes/100 WBC (Bld) 7.4 % 0-10 [facility] Neutrophil percentageOrdered By: Sal Murphy on 02-09-2025 Neutrophils/100 WBC (Bld) 76.8 % High 47-70 [facility] No Panel InformationOrdered By: Sal Murphy on 02-09-2025 Addendum Document Comment . [facility] Comment on above: Protein electrophore sis scan will follow via computer,mail, or computer scientist delivery. Hepatitis C Antibody Comment Comment . [facility] Comment on above: Not infected with HC V unless early or acute infection issuspected (which may be delayed in an immunocompromisedindividual), or other evidence exists to indicate HCVinfection. Unsaturated Iron Binding Capacity 126 ug/dL Low 228-428 [facility] Nucleated red blood cell per centageOrdered By: Sal Murphy on 02-09-2025 Nucleated RBC/100 WBC (Bld) [Ratio] 0 % 0-5 [facility] Phosphoruson 02-09-2025 Phosphate [Mass/Vol] 3.2 mg/dL Normal 2.7-4.5 [facility] Comment on above: Performed By: #### L [id number], L800.1280, L501.5200, L503.6550, L3300.0700, L501.6710, L100.0100, L300.3900, L500.4050, L803.2200, L3100.3425, L3000.0375, L3100.5450, L501.2300, L501.4700, L501.9985, L3400.0700, L500.4100, L3410.9992, L503.6030 ####[facility] [id number] [place], [address] Platelet countOrdered By: Shaka Murphy on 02-09-2025 Platelets (Bld) [#/Vol] 264 10*3/uL 150-450 [facility] Potassium measurement (mass/ volume)Ordered By: Sal Murphy on 02-09-2025 Potassium (Unsp spec) [Mass/Vol] 4.1 mmol/L 3.3-5.1 [facility] Prothrombin Time w/INRon INR Coag (PPP) [Relative time] 1.1 {INR} Normal [facility] Comment on above: Performed By: #### L [id number], L800.1280, L501.5200, L503.6550, L3300.0700, L501.6710, L100.0100, L300.3900, L500.4050, L803.2200, L3100.3425, L3000.0375, L3100.5450, L501.2300, L501.4700, L501.9985, L3400.0700, L500.4100, L3410.9992, L503.6030 #### [facility] [address] [place], [place], [id number] PT Coag (PPP) [Time] 14.2 s Normal 11.7-14.9 [facility] Comment on above: Performed By: #### L [id number], L800.1280, L501.5200, L503.6550, L3300.0700, L501.6710, L100.0100, L300.3900, L500.4050, L803.2200, L3100.3425, L3000.0375, L3100.5450, L501.2300, L501.4700, L501.9985, L3400.0700, L500.4100, L3410.9992, L503.6030 #### [facility] [address] [place], [place], [id number] Prothrombin timeOrdered By: Sal Murphy on 02-09-2025 PT Coag (PPP) [Time] 14.2 s 11.7-14.9 [facility] RBC Auto (Bld) [#/Vol]Ordere d By: Sal Murphy on 02-09-2025 RBC (Bld) [#/Vol] 4.60 10*6/uL 4.2-5.4 [facility] Screening total cholesterol/ high density lipoprotein (HDL) cholesterol ratioOrdered By: Sal Murphy on 02-09-2025 Cholesterol.total/Gemma sterol in HDL [Mass ratio] 2.99 {ratio} [facility] Serum DNA double strand anti body assay (units/volume)Ordered By: Sal Murphy on 02-09-2025 DNA double strand Ab Qn (S) [facility] Comment on above: Test not performed Serum Scl-70 antibody assay (units/volume)Ordered By: Sal Murphy on 02-09-2025 SCL-70 extractable nuclear Ab Qn (S) [facility] Comment on above: Test not performed Serum creatinine measurement (mass/volume)Ordered By: Sal Murphy on 02-09-2025 Creatinine [Mass/Vol] 0.86 mg/dL 0.70-1.20 [facility] Serum globulin measurement ( mass/volume)Ordered By: Sal Murphy on 02-09-2025 Globulin (S) [Mass/Vol] 3.2 g/dL 2.2-3.9 [facility] Serum glucose measurement (m ass/volume)Ordered By: Sal Murphy on 02-09-2025 Glucose [Mass/Vol] 94 mg/dL 70-99 [facility] Serum mitochondria antibody detectionOrdered By: Sal Murphy on 02-09-2025 Mitochondria Ab Ql (S) <20.0 Units 0.0-20.0 [facility] Comment on above: Negative 0.0 - 20.0 Equivocal 20.1 - 24.9 Positive >24.9Mitochondrial (M2) Antibodies are found in 90-96% ofpatients with primary biliary cirrhosis. Serum or plasma C reactive p rotein measurement (mass/volume)Ordered By: Sal Murphy on 02-09-2025 CRP [Mass/Vol] mg/L 0.0-3.0 [facility] Serum or plasma IgA measurem ent (mass/volume)Ordered By: Sal Murphy on 02-09-2025 IgA [Mass/Vol] 226 mg/dL 64-422 [facility] Serum or plasma IgG measurem ent (mass/volume)Ordered By: Sal Murphy on 02-09-2025 IgG [Mass/Vol] 1570 mg/dL [phone] [facility] Serum or plasma actin IgG an tibody assay (units/volume)Ordered By: Sal Murphy on 02-09-2025 Actin IgG Qn 16 Units 0-19 [facility] Comment on above: Negative 0 - 19 Weak positive 20 - 30 Moderate to strong positive >30 Actin Antibodies are found in 52-85% of patients with autoimmune hepatitis or chronic active hepatitis and in 22% of patients with primary biliary cirrhosis. Serum or plasma alanine burrell otransferase (ALT) measurementOrdered By: Sal Murphy on 02-09-2025 ALT [Catalytic activity/Vol] 9 U/L <35 [facility] Serum or plasma albumin max urement (mass/volume)Ordered By: Sal Murphy on 02-09-2025 Albumin [Mass/Vol] 4.1 g/dL 3.4-4.8 [facility] Serum or plasma albumin/glob ulin mass ratioOrdered By: Sal Murphy on 02-09-2025 Albumin/Globulin [Mass ratio] 1.3 {ratio} 0.9-2.4 [facility] Serum or plasma alkaline maine sphatase measurementOrdered By: Sal Murphy on 02-09-2025 ALP [Catalytic activity/Vol] 64 U/L 35-104 [facility] Serum or plasma alpha 1 glob ulin measurement by electrophoresis (mass/volume)Ordered By: Sal Murphy on 02-09-2025 Alpha 1 globulin Elph [Mass/Vol] 0.2 g/dL 0.0-0.4 [facility] Alpha 1 globulin Elph [Mass/Vol] 0.6 g/dL 0.4-1.0 [facility] Serum or plasma beta globuli n measurement by electrophoresis (mass/volume)Ordered By: Sal Murphy on 02-09-2025 Beta globulin Elph [Mass/Vol] 0.9 g/dL 0.7-1.3 [facility] Serum or plasma calcium max urement (mass/volume)Ordered By: Sal Murphy on 02-09-2025 Calcium [Mass/Vol] 9.2 mg/dL 7.6-11.0 [facility] Serum or plasma cholesterol in HDL measurement (mass/volume)Ordered By: Sal Murphy on 02-09-2025 Cholesterol in HDL [Mass/Vol] 51 mg/dL >40 [facility] Comment on above: National Cholesterol Education Program (NCEP) guidelines:<40 mg/dL: Low HDL-cholesterol (major risk factor for CHD)>= 60 mg/dL: High HDL-cholesterol (negative risk factor for CHD)HDL-cholesterol is affected by a number of factors, e.g. smoking, exercise, hormones, sex and age. Serum or plasma cholesterol measurement (mass/volume)Ordered By: Sal Murphy on 02-09-2025 Cholesterol [Mass/Vol] 153 mg/dL <201 [facility] Comment on above: Cholesterol level, D esirable <200 mg/dLBorderline high cholesterol 200-239 mg/dLHigh cholesterol >=240 mg/dLRecommendations of the NCEP Adult Treatment Panel for the following risk-cutoff thresholds for the [place] population. Serum or plasma ferritin villa surement (mass/volume)Ordered By: Sal Murphy on 02-09-2025 Ferritin [Mass/Vol] 157 ng/mL 22-378 [facility] Serum or plasma gamma globul in measurement by electrophoresis (mass/volume)Ordered By: Sal Murphy on 02-09-2025 Gamma globulin Elph [Mass/Vol] 1.4 g/dL 0.4-1.8 [facility] Serum or plasma hepatitis B virus surface antigen detection by immunoassayOrdered By: Sal Murphy on 02-09-2025 HBV surface Ag IA Ql Negative Negative [facility] Serum or plasma immunoelectr ophoresis interpretation (nominal result)Ordered By: Sal Murphy on 02-09-2025 Interpretation IEP [Interp] Comment . [facility] Comment on above: No monoclonality det ected. Serum or plasma iron saturat ion measurement (mass fraction)Ordered By: Sal Murphy on 02-09-2025 Iron saturation [Mass fraction] 51.7 % 13-59 [facility] Comment on above: Previous reported re sult: 52.0 %Edited by: LIZZIE on 02/09/25:1651 AMENDED REPORT 02/09/25 1651 IRON SATURATION previously reported as: 52.0 % Serum or plasma protein max urement (mass/volume)Ordered By: Sal Murphy on 02-09-2025 Protein [Mass/Vol] 6.9 g/dL 6.0-8.5 [facility] Serum or plasma urea nitroge n measurement (mass/volume)Ordered By: Sal Murphy on 02-09-2025 Urea nitrogen [Mass/Vol] 16 mg/dL 4-19 [facility] Sodium levelOrdered By: Ivonne Murphy on 02-09-2025 Sodium [Moles/Vol] 139 mmol/L 133-145 [facility] TSH DL <= 0.005 mIU/L QnOrde red By: Sal Murphy on 02-09-2025 TSH Qn 2.110 uIU/mL 0.300-4.20 0 [facility] Thyroid Stim Hormone (TSH)on 02-09-2025 TSH 2.110 uIU/mL Normal 0.300-4.20 0 [facility] Comment on above: Performed By: #### L 501.9520, L800.1280, L501.5200, L503.6550, L3300.0700, L501.6710, L100.0100, L300.3900, L500.4050, L803.2200, L3100.3425, L3000.0375, L3100.5450, L501.2300, L501.4700, L501.9985, L3400.0700, L500.4100, L3410.9992, L503.6030 ####[facility] [address] [place], [address] Total proteinOrdered By: Bassam Murphy on 02-09-2025 Protein [Mass/Vol] 7.2 g/dL 5.9-8.4 [facility] Triglycerides measurementOrd ered By: Sal Murphy on 02-09-2025 Triglyceride [Mass/Vol] 127 mg/dL <199 [facility] Comment on above: The drugs N-Acetylcy steine and Metamizole may falsely depress this assay. Normal range: <150 mg/dLBorderline High: 150-199 mg/dLHigh: 200-499 mg/dLVery High: >500 mg/dL White blood cell (WBC) count Ordered By: Sal Murphy on 02-09-2025 WBC (Bld) [#/Vol] 8.4 10*3/uL 4.4-11.0 [facility] 10-07-2024 U Creatinine 39.6 mg/dL Normal [facility] Comment on above: Performed By: #### M ALBR #### [address] [address] U Microalb 1.8 mg/L Normal [facility] Comment on above: Performed By: #### M ALBR #### [address] [address] U Ratio Alb/Cre 5 mg/G Normal 0-30 [facility] Comment on above: Performed By: #### M ALBR #### [facility] [address] [place], [place] [address] Gastroenterology Visit Repor ton 08-11-2024 Gastroenterology Visit Report [facility]astroenterology [address] [place] [address] OFFICE VISIT Date of Service: 08/11/24 MR#: [id number] Acct: [id number] Name: YVES ORR Rep #: [id number] : 1950 Provider: Dr. Sal chambers MD Age/Sex: 74/F Location: [facility] Status: Signed Intake Vital Signs 06/26/24 09:12 08/11/24 13:02 Height 5 ft 4 in 5 ft 4 in Weight: 176 lb BMI 30.2 BP 144/90 H Blood Pressure Location Rt brachial Position Sitting Pulse 98 Pulse Oximetry (%) 97 Intake Visit Reasons: Unspecified Jaundice Allergies No Known Allergies Allergy (Verified 07/10/24 08:37) Medications ???Medication ???Instructions ???Recorded ???Confirmed ???Type cholecalciferol (vitamin D3) 50 2,000 unit PO DAILY 11/25/13 07/10/24 History mcg (2,000 unit) tablet (Vitamin D3) hydrochlorothiazide 25 mg tablet 25 mg PO DAILY 11/25/13 07/10/24 History loratadine 10 mg tablet (Allergy 10 mg PO DAILY 11/25/13 07/10/24 History Relief (loratadine)) triamcinolone acetonide 55 mcg 2 spray DAILY 11/25/13 07/10/24 History nasal spray aerosol (Nasal Allergy) citalopram 30 mg capsule 30 mg PO QDAY 07/10/24 07/10/24 History lisinopril 20 mg tablet 20 mg PO QDAY 07/10/24 07/10/24 History trazodone 50 mg tablet 50 mg PO QDAY 07/10/24 07/10/24 History Have you fallen in the past year?: No PFSH Medical History (Updated 08/11/24 @ 13:[address] Sal Murphy MD) Cervical lymphadenopathy Vitamin D deficiency Anxiety HLD (hyperlipidemia) Palpitations History of alcohol abuse Elevated bilirubin Surgical History History of colonoscopy Family History Father Arthritis Hypertension CVA (cerebral vascular accident) Social History Smoking Status: Never smoker alcohol intake: current alcohol intake frequency: a few times a week substance use type: does not use HPI HPI Details: YVES ORR, is a 74 F who presents to the office today for follow up. PCP referred for elevated bilirubin and hx of alcohol abuse. PMH includes HTN, anxiety, depression, HLD. Pt states she overall feels well. States she currently drinks 5 beers a week. Denies dizziness, SOB, Confusion, swelling, abdominal pain, bowel changes. ROS Const Constitutional: No fatigue, fever(s), weakness or weight change ENT ENT: No difficulty swallowing Resp Respiratory: No shortness of breath or wheezing Cardio Cardiology: Positive for lightheadedness; No chest pain at rest or dyspnea on exertion Gastro GI: No abdominal pain, belching, bloating, change in bowel habits, change in stool character, coffee ground emesis, constipation, cramping, diarrhea, heartburn, difficulty swallowing, feeling full early, excessive flatus, incontinent of stools, Vomiting blood/hematemesis, Blood in stool, loose stools, Black,tarry stools, nausea/dyspepsia, pain with swallowing, vomiting or other Genitourinary-Female: No difficulty urinating or burning urination Musc Musculoskeletal: No joint pain Skin Skin: No yellowing of the eye or itchy eyes Neuro Neurology: No abnormal movements, behavioral changes, weakness or lack of coordination Psych Psychiatric: No anxiety, No behavioral changes and No depression Endo Endocrine: No fatigue or weight change Aller/Imm Allergy/Immunologic: No itchy eyes or wheezing Sridhar/Lymp Hematologic/Lymphatic: No easy bleeding or easy bruising Exam Const General: cooperative, no acute distress and well developed Nutritional Appearance: obese Orientation: alert, awake and oriented x3 Other: BMI 30.2 kg/m??? HENMT Head: normocephalic and atraumatic Nose: external nose normal Face and sinus: normal facial exam Mouth: moist mucous membranes Eyes Pupils: PERRL EOM: EOM intact bilaterally Other: No icterus Neck Neck: normal visual inspection, no meningeal signs and trachea midline Carotids: no bruits Chest Chest palpation inspection: normal inspection of the chest Resp Effort Inspection: normal respiratory effort and symmetric chest movement Auscultation: Bilateral: Clear to Auscultation Cardio Palpation: normal PMI Rate: regular rate Rhythm: regular rhythm Heart Sounds: S1 normal and S2 normal GI Auscultation: normal bowel sounds Percussion: normal to percussion Palpation: soft, no hepatosplenomegaly and no guarding Other: Liver not enlarged. Spleen not felt. Clinically no palpable ascites. General: bimanual renal exam normal bilaterally, bladder normal to inspection and bladder normal to palpation Bimanual Exam- Vagina Uterus: bladder normal to palpation Musc Musculoskeletal: No joint tenderness, joint redness, join (more content not included)... Normal [facility] .GFRon 06-19-2024 GFR 90 ml/min/1.73sqm [facility] Comment on above: Result Comment: GFR Population mean for , Non- Americans Ages 20-29 = 116 mL/min/1.73 sq.m. Ages 30-39 = 107 mL/min/1.73 sq.m. Ages 40-49 = 99 mL/min/1.73 sq.m. Ages 50-59 = 93 mL/min/1.73 sq.m. Ages 60-69 = 85 mL/min/1.73 sq.m. Ages 70+ = 75 mL/min/1.73 sq.m. Chronic Kidney Disease: Less than 60 mL/min/1.73 square meters End Stage Renal Disease: Less than 15 mL/min/1.73 square meters Performed By: #### G , [facility] #### [place] [address] GFR Non- 74 ml/min/1.73sqm [facility] Comment on above: Result Comment: GFR Population mean for , Non- Americans Ages 20-29 = 116 mL/min/1.73 sq.m. Ages 30-39 = 107 mL/min/1.73 sq.m. Ages 40-49 = 99 mL/min/1.73 sq.m. Ages 50-59 = 93 mL/min/1.73 sq.m. Ages 60-69 = 85 mL/min/1.73 sq.m. Ages 70+ = 75 mL/min/1.73 sq.m. Chronic Kidney Disease: Less than 60 mL/min/1.73 square meters End Stage Renal Disease: Less than 15 mL/min/1.73 square meters Performed By: #### Selena ROGERS, CMP #### [address] [address] CMPon 06-19-2024 Albumin Level 3.5 G/dL Normal 3.4-4.8 [facility] Comment on above: Performed By: #### Selena ROGERS, CMP #### [address] [address] Albumin/Globulin [Mass ratio] 1.1 {ratio} Normal 1.1-2.5 [facility] Comment on above: Performed By: #### Selena ROGERS, CMP #### [address] [address] ALP [Catalytic activity/Vol] 67 U/L Normal 40-135 [facility] Comment on above: Performed By: #### Selena ROGERS, CMP #### [address] [address] ALT [Catalytic activity/Vol] 19 U/L Normal 14-59 [facility] Comment on above: Performed By: #### Selena ROGERS, CMP #### [address] [address] AST [Catalytic activity/Vol] 14 U/L Normal 10-40 [facility] Comment on above: Performed By: #### Selena ROGERS, CMP #### [address] [address] Bili Total 1.6 mg/dL High 0.2-1.0 [facility] Comment on above: Result Comment: Use of this assay is not recommended for patients undergoing treatment with eltrombopag due to the potential for falsely elevated results. Performed By: #### Selena ROGERS, CMP #### [address] [address] BUN/Creatinine Ratio 18 ratio Normal 7-27 [facility] Comment on above: Performed By: #### G , CMP #### [address] [address] Calcium [Mass/Vol] 9.3 mg/dL Normal 8.4-10.2 [facility] Comment on above: Performed By: #### G , CMP #### [place] [id number] Chloride [Moles/Vol] 101 mmol/L Normal 98-107 [facility] Comment on above: Performed By: #### G , CMP #### [place] [address] CO2 [Moles/Vol] 28 mmol/L Normal 23-31 [facility] Comment on above: Performed By: #### G , CMP #### [place] [id number] Creatinine [Mass/Vol] 0.76 mg/dL Normal 0.55-1.02 [facility] Comment on above: Result Comment: Test ing performed on Siemens Dimension EXL analyzer using a modified kinetic Shawn technique. Performed By: #### G , CMP #### [address] [address] Electrolyte Balance 8.0 mEq/L Normal 4.0-15.0 [facility] Comment on above: Performed By: #### G , CMP #### [address] [address] Globulin 3.3 G/dL Normal [facility] Comment on above: Performed By: #### G FR, CMP #### [address] [address] Glucose [Mass/Vol] 91 mg/dL Normal 83-110 [facility] Comment on above: Performed By: #### G , CMP #### [place] [id number] Potassium [Moles/Vol] 4.4 mmol/L Normal 3.5-5.1 [facility] Comment on above: Performed By: #### G FR, CMP #### [address] [address] Sodium [Moles/Vol] 137 mmol/L Normal 136-145 [facility] Comment on above: Performed By: #### G FR, CMP #### [address] [address] Total Protein 6.8 G/dL Normal 6.4-8.2 [facility] Comment on above: Performed By: #### G FR, CMP #### [address] [address] Urea nitrogen [Mass/Vol] 14 mg/dL Normal 7-18 [facility] Comment on above: Performed By: #### G FR, CMP #### [address] [address] LABORATORYOrdered By: SYSTEM SYSTEM on 06-19-2024 Albumin BCP dye [Mass/Vol] 3.5 G/dL Normal 3.4 - 4.8 G/dL AO ADM SS Albumin/Globulin [Mass ratio] 1.1 {ratio} Normal 1.1 - 2.5 ratio AO ADM SS ALP [Catalytic activity/Vol] 67 U/L Normal 40 - 135 U/L AO ADM SS ALT With P-5'-P [Catalytic activity/Vol] 19 U/L Normal 14 - 59 U/L AO ADM SS AST With P-5'-P [Catalytic activity/Vol] 14 U/L Normal 10 - 40 U/L AO ADM SS Bilirubin [Mass/Vol] 1.6 mg/dL High 0.2 - 1 .0 mg/dL AO ADM SS Comment on above: Interpretive Data: U se of this assay is not recommended for patients undergoing treatment with eltrombopag due to the potential for falsely elevated results. Calcium [Mass/Vol] 9.3 mg/dL Normal 8.4 - 10. 2 mg/dL AO ADM SS Chloride [Moles/Vol] 101 mmol/L Normal 98 - 10 7 mmol/L AO ADM SS CO2 [Moles/Vol] 28 mmol/L Normal 23 - 31 mmol/L AO ADM SS Creatinine [Mass/Vol] 0.76 mg/dL Normal 0.55 - 1.02 mg/dL AO ADM SS Comment on above: Interpretive Data: T esting performed on Siemens Dimension EXL analyzer using a modified kinetic Shawn technique. Electrolyte Balance 8.0 mEq/L Normal 4.0 - 15 .0 mEq/L AO ADM SS GFR/1.73 sq M.predicted among blacks MDRD (S/P/Bld) [Vol rate/Area] 90 ml/min/1.73sqm Invalid Interpretation Code AO Chemistry S Comment on above: Interpretive Data: GFR Population mean for , Non- Americans Ages 20-29 = 116 mL/min/1.73 sq.m. Ages 30-39 = 107 mL/min/1.73 sq.m. Ages 40-49 = 99 mL/min/1.73 sq.m. Ages 50-59 = 93 mL/min/1.73 sq.m. Ages 60-69 = 85 mL/min/1.73 sq.m. Ages 70+ = 75 mL/min/1.73 sq.m. Chronic Kidney Disease: Less than 60 mL/min/1.73 square meters End Stage Renal Disease: Less than 15 mL/min/1.73 square meters GFR/1.73 sq M.predicted among non-blacks MDRD (S/P/Bld) [Vol rate/Area] 74 ml/min/1.73sqm Invalid Interpretation Code AO Chemistry S Comment on above: Interpretive Data: GFR Population mean for , Non- Americans Ages 20-29 = 116 mL/min/1.73 sq.m. Ages 30-39 = 107 mL/min/1.73 sq.m. Ages 40-49 = 99 mL/min/1.73 sq.m. Ages 50-59 = 93 mL/min/1.73 sq.m. Ages 60-69 = 85 mL/min/1.73 sq.m. Ages 70+ = 75 mL/min/1.73 sq.m. Chronic Kidney Disease: Less than 60 mL/min/1.73 square meters End Stage Renal Disease: Less than 15 mL/min/1.73 square meters Globulin 3.3 G/dL Invalid Interpretation Code AO ADM SS Glucose [Mass/Vol] 91 mg/dL Normal 83 - 110 mg/dL AO ADM SS Potassium [Moles/Vol] 4.4 mmol/L Normal 3.5 - 5.1 mmol/L AO ADM SS Protein [Mass/Vol] 6.8 G/dL Normal 6.4 - 8.2 G/dL AO ADM SS Sodium [Moles/Vol] 137 mmol/L Normal 136 - 145 mmol/L AO ADM SS Urea nitrogen [Mass/Vol] 14 mg/dL Normal 7 - 18 mg/dL AO ADM SS Urea nitrogen/Creatinine [Mass ratio] 18 ratio Normal 7 - 27 ratio AO ADM SS MA MAMMOGRAM SCREENING BILAT ERAL W/TOMOon 03-04-2024 MA MAMMOGRAM SCREENING BILATERAL W/KHADAR ORIGINAL FROM: VISHNU [address] [address] PROCEDURE FOR: YVES ORR [address] [place] [address] Home: PID#: [id number] Exam#: [id number] : 1950 Age: 73 TO: DAISY PENN DO [address] [address] Fax: NO FAX EXAMINATION: SCREENING DIGITAL BILATERAL MAMMOGRAM WITH TOMOSYNTHESIS, 03/04/2024 2:33 pm TECHNIQUE: Screening mammography of the bilateral breasts was performed with tomosynthesis. 2D standard and 3D tomosynthesis combination imaging performed through both breasts in the MLO and CC projection. Computer aided detection was utilized in the interpretation of this exam. COMPARISON: 02/08/2023, 02/07/2022 HISTORY: Breast cancer screening. FINDINGS: BREAST DENSITY: The breasts are heterogeneously dense, which may obscure small masses. There are no significant masses or calcifications. IMPRESSION: No mammographic evidence of malignancy. Continued screening with annual mammograms is recommended. Jessica Damian risk calculations, generated with the history provided, report this patient's 10 year risk and lifetime risk for developing breast cancer at 4.6% and 5.1%, respectively. Based on this assessment tool, if the patient's calculated lifetime risk is below 20%, then the patient is considered at average risk for developing breast cancer. If the patient's calculated lifetime risk is at or above 20%, then the patient is considered high risk for developing breast cancer and may be a candidate for supplemental breast MRI screening in addition to annual mammographic screening per the [place] [employer]. BIRADS: BI-RADS: 1: Negative RECALL: 1 year screening RECALL TYPE: mammo LETTER SENT: Normal BI-RADS 1 and 2 Interpreted by: Bertin Rene MD Preliminary Report By: Bertin Rene MD Electronically signed By Bertin Rene MD Dictated Date: 03/04/2024 8:15:00 PM Prelim Date: 03/04/2024 8:32:27 PM Sign Date: 03/04/2024 8:32:27 PM Ordering Provider: DAISY PENN Vp Platforms: RAMON FRANCO (Kecia)(M) letter sent: Normal BI-RADS 1 and 2 Mammogram BI-RADS: 1 Negative Normal [facility] ([place]) LABORATORYOrdered By: Brandin Paige on 10-16-2023 Albumin DL <= 20 mg/L (U) [Mass/Vol] 894 mcg/dL Invalid Interpretation Code AO ADM SS Albumin/Creatinine DL <= 20 mg/L (U) [Mass ratio] 19 mcg/mg Normal 0 - 30 mcg/mg AO ADM SS Creatinine (U) [Mass/Vol] 46.2 mg/dL Normal 28.0 - 117.0 mg/dL AO ADM SS MALBRon 10-16-2023 U Creatinine 46.2 mg/dL Normal 28.0-117.0 [facility] ([place]) Comment on above: Performed By: #### M ALBR #### [address] [address] U Microalb 894 mcg/dL Normal [facility] ([place]) Comment on above: Performed By: #### M ALBR #### [place] [id number] [place], [place] [address] U Ratio Alb/Cre 19 mcg/mg Normal 0-30 [facility] ([place]) Comment on above: Performed By: #### M ALBR #### [address] [address] .GFRon 10-10-2023 GFR 94 ml/min/1.73sqm Normal [facility] ([place]) Comment on above: Result Comment: GFR Population mean for , Non- Americans Ages 20-29 = 116 mL/min/1.73 sq.m. Ages 30-39 = 107 mL/min/1.73 sq.m. Ages 40-49 = 99 mL/min/1.73 sq.m. Ages 50-59 = 93 mL/min/1.73 sq.m. Ages 60-69 = 85 mL/min/1.73 sq.m. Ages 70+ = 75 mL/min/1.73 sq.m. Chronic Kidney Disease: Less than 60 mL/min/1.73 square meters End Stage Renal Disease: Less than 15 mL/min/1.73 square meters Performed By: #### G FR, LIPID, TSH, CMP, VIDH #### [address] [address] GFR Non- 78 ml/min/1.73sqm Normal [facility] ([place]) Comment on above: Result Comment: GFR Population mean for , Non- Americans Ages 20-29 = 116 mL/min/1.73 sq.m. Ages 30-39 = 107 mL/min/1.73 sq.m. Ages 40-49 = 99 mL/min/1.73 sq.m. Ages 50-59 = 93 mL/min/1.73 sq.m. Ages 60-69 = 85 mL/min/1.73 sq.m. Ages 70+ = 75 mL/min/1.73 sq.m. Chronic Kidney Disease: Less than 60 mL/min/1.73 square meters End Stage Renal Disease: Less than 15 mL/min/1.73 square meters Performed By: #### G FR, LIPID, TSH, CMP, VIDH #### [address] [address] CMPon 10-10-2023 Albumin Level 3.5 G/dL Normal 3.4-4.8 [facility] ([place]) Comment on above: Performed By: #### G FR, LIPID, TSH, CMP, VIDH #### [address] [address] Albumin/Globulin [Mass ratio] 1.1 {ratio} Normal 1.1-2.5 [facility] ([place]) Comment on above: Performed By: #### G FR, LIPID, TSH, CMP, VIDH #### [address] [address] ALP [Catalytic activity/Vol] 65 U/L Normal 40-135 [facility] ([place]) Comment on above: Performed By: #### G FR, LIPID, TSH, CMP, VIDH #### [address] [address] ALT [Catalytic activity/Vol] 19 U/L Normal 14-59 [facility] ([place]) Comment on above: Performed By: #### G FR, LIPID, TSH, CMP, VIDH #### [address] [address] AST [Catalytic activity/Vol] 12 U/L Normal 10-40 [facility] ([place]) Comment on above: Performed By: #### G FR, LIPID, TSH, CMP, VIDH #### [address] [address] Bili Total 1.2 mg/dL High 0.2-1.0 [facility] ([place]) Comment on above: Result Comment: Use of this assay is not recommended for patients undergoing treatment with eltrombopag due to the potential for falsely elevated results. Performed By: #### G FR, LIPID, TSH, CMP, VIDH #### [address] [address] BUN/Creatinine Ratio 25 ratio Normal 7-27 [facility] ([place]) Comment on above: Performed By: #### G FR, LIPID, TSH, CMP, VIDH #### [address] [address] Calcium [Mass/Vol] 8.8 mg/dL Normal 8.4-10.2 [facility] ([place]) Comment on above: Performed By: #### G FR, LIPID, TSH, CMP, VIDH #### [address] [address] Chloride [Moles/Vol] 100 mmol/L Normal 98-107 [facility] ([place]) Comment on above: Performed By: #### G FR, LIPID, TSH, CMP, VIDH #### [address] [address] CO2 [Moles/Vol] 28 mmol/L Normal 23-31 [facility] ([place]) Comment on above: Performed By: #### G FR, LIPID, TSH, CMP, VIDH #### [address] [address] Creatinine [Mass/Vol] 0.73 mg/dL Normal 0.55-1.02 [facility] ([place]) Comment on above: Performed By: #### G FR, LIPID, TSH, CMP, VIDH #### [address] [address] Electrolyte Balance 8.0 mEq/L Normal 4.0-15.0 [facility] ([place]) Comment on above: Performed By: #### G FR, LIPID, TSH, CMP, VIDH #### [address] [address] Globulin 3.3 G/dL Normal [facility] ([place]) Comment on above: Performed By: #### G FR, LIPID, TSH, CMP, VIDH #### [address] [address] Glucose [Mass/Vol] 96 mg/dL Normal 83-110 [facility] ([place]) Comment on above: Performed By: #### G FR, LIPID, TSH, CMP, VIDH #### [address] [address] Potassium [Moles/Vol] 4.0 mmol/L Normal 3.5-5.1 [facility] ([place]) Comment on above: Performed By: #### G FR, LIPID, TSH, CMP, VIDH #### [address] [address] Sodium [Moles/Vol] 136 mmol/L Normal 136-145 [facility] ([place]) Comment on above: Performed By: #### G FR, LIPID, TSH, CMP, VIDH #### [facility] [address] [place], [place] [address] Total Protein 6.8 G/dL Normal 6.4-8.2 [facility] ([place]) Comment on above: Performed By: #### G FR, LIPID, TSH, CMP, VIDH #### [place] [id number] [place], [place] [address] Urea nitrogen [Mass/Vol] 18 mg/dL Normal 7-18 [facility] ([place]) Comment on above: Performed By: #### G FR, LIPID, TSH, CMP, VIDH #### [place] [id number] [place], [place] [address] LABORATORYOrdered By: SYSTEM SYSTEM on 10-10-2023 25-hydroxyvitamin D3 [Mass/Vol] 48.8 ng/mL Invalid Interpretation Code AO ADM SS Comment on above: Interpretive Data: I nterpretive Values Based on Total 25(OH) Vitamin D: Deficient <20 ng/mL Insufficient 20 - <30 ng/mL Sufficient 30-100 ng/mL Albumin BCP dye [Mass/Vol] 3.5 G/dL Normal 3.4 - 4.8 G/dL AO ADM SS Albumin/Globulin [Mass ratio] 1.1 {ratio} Normal 1.1 - 2.5 ratio AO ADM SS ALP [Catalytic activity/Vol] 65 U/L Normal 40 - 135 U/L AO ADM SS ALT With P-5'-P [Catalytic activity/Vol] 19 U/L Normal 14 - 59 U/L AO ADM SS AST With P-5'-P [Catalytic activity/Vol] 12 U/L Normal 10 - 40 U/L AO ADM SS Bilirubin [Mass/Vol] 1.2 mg/dL High 0.2 - 1 .0 mg/dL AO ADM SS Comment on above: Interpretive Data: U se of this assay is not recommended for patients undergoing treatment with eltrombopag due to the potential for falsely elevated results. Calcium [Mass/Vol] 8.8 mg/dL Normal 8.4 - 10. 2 mg/dL AO ADM SS Chloride [Moles/Vol] 100 mmol/L Normal 98 - 10 7 mmol/L AO ADM SS CO2 [Moles/Vol] 28 mmol/L Normal 23 - 31 mmol/L AO ADM SS Creatinine [Mass/Vol] 0.73 mg/dL Normal 0.55 - 1.02 mg/dL AO ADM SS Electrolyte Balance 8.0 mEq/L Normal 4.0 - 15 .0 mEq/L AO ADM SS GFR/1.73 sq M.predicted among blacks MDRD (S/P/Bld) [Vol rate/Area] 94 ml/min/1.73sqm Invalid Interpretation Code AO Chemistry S Comment on above: Interpretive Data: GFR Population mean for , Non- Americans Ages 20-29 = 116 mL/min/1.73 sq.m. Ages 30-39 = 107 mL/min/1.73 sq.m. Ages 40-49 = 99 mL/min/1.73 sq.m. Ages 50-59 = 93 mL/min/1.73 sq.m. Ages 60-69 = 85 mL/min/1.73 sq.m. Ages 70+ = 75 mL/min/1.73 sq.m. Chronic Kidney Disease: Less than 60 mL/min/1.73 square meters End Stage Renal Disease: Less than 15 mL/min/1.73 square meters GFR/1.73 sq M.predicted among non-blacks MDRD (S/P/Bld) [Vol rate/Area] 78 ml/min/1.73sqm Invalid Interpretation Code AO Chemistry S Comment on above: Interpretive Data: GFR Population mean for , Non- Americans Ages 20-29 = 116 mL/min/1.73 sq.m. Ages 30-39 = 107 mL/min/1.73 sq.m. Ages 40-49 = 99 mL/min/1.73 sq.m. Ages 50-59 = 93 mL/min/1.73 sq.m. Ages 60-69 = 85 mL/min/1.73 sq.m. Ages 70+ = 75 mL/min/1.73 sq.m. Chronic Kidney Disease: Less than 60 mL/min/1.73 square meters End Stage Renal Disease: Less than 15 mL/min/1.73 square meters Globulin 3.3 G/dL Invalid Interpretation Code AO ADM SS Glucose [Mass/Vol] 96 mg/dL Normal 83 - 110 mg/dL AO ADM SS Potassium [Moles/Vol] 4.0 mmol/L Normal 3.5 - 5.1 mmol/L AO ADM SS Protein [Mass/Vol] 6.8 G/dL Normal 6.4 - 8.2 G/dL AO ADM SS Sodium [Moles/Vol] 136 mmol/L Normal 136 - 145 mmol/L AO ADM SS TSH Qn 2.43 m[IU]/L Normal 0.36 - 3.74 mcIU/mL AO ADM SS Urea nitrogen [Mass/Vol] 18 mg/dL Normal 7 - 18 mg/dL AO ADM SS Urea nitrogen/Creatinine [Mass ratio] 25 ratio Normal 7 - 27 ratio AO ADM SS LABORATORYOrdered By: Brandin Paige on 10-10-2023 Cholesterol [Mass/Vol] 161 mg/dL Normal 0 - 2 00 mg/dL AO ADM SS Comment on above: Interpretive Data: C holesterol Reference Interval: Less than 200 Desirable 200-239 Borderline high risk 240 and above High risk Cholesterol in HDL [Mass/Vol] 48 mg/dL Normal 40 - 60 mg/dL AO ADM SS Cholesterol in LDL [Mass/Vol] 91 mg/dL Normal 0 - 130 mg/dL AO ADM SS Triglyceride [Mass/Vol] 108 mg/dL Normal 0 - 150 mg/dL AO ADM SS Comment on above: Interpretive Data: T riglyceride Reference Interval: Less than 150 Normal 150-199 Borderline high risk 200-499 High risk 500 or higher Very high risk LIPIDon 10-10-2023 Cholesterol [Mass/Vol] 161 mg/dL Normal 0-200 [facility] ([place]) Comment on above: Result Comment: Chol esterol Reference Interval: Less than 200 Desirable 200-239 Borderline high risk 240 and above High risk Performed By: #### G FR, LIPID, TSH, CMP, VIDH #### [address] [address] Cholesterol in HDL [Mass/Vol] 48 mg/dL Normal 40-60 [facility] ([place]) Comment on above: Performed By: #### G FR, LIPID, TSH, CMP, VIDH #### Vishnu [address] [address] Cholesterol in LDL [Mass/Vol] 91 mg/dL Normal 0-130 [facility] ([place]) Comment on above: Performed By: #### G FR, LIPID, TSH, CMP, VIDH #### [address] [address] Triglyceride [Mass/Vol] 108 mg/dL Normal 0-150 [facility] ([place]) Comment on above: Result Comment: Trig lyceride Reference Interval: Less than 150 Normal 150-199 Borderline high risk 200-499 High risk 500 or higher Very high risk Performed By: #### G FR, LIPID, TSH, CMP, VIDH #### [address] [address] TSHon 10-10-2023 TSH Qn 2.43 m[IU]/L Normal 0.36-3.74 [facility] ([place]) Comment on above: Performed By: #### G FR, LIPID, TSH, CMP, VIDH #### [address] [address] VIDHon 10-10-2023 Vit. D 25-Hydroxy 48.8 ng/mL Normal [facility] ([place]) Comment on above: Result Comment: Inte rpretive Values Based on Total 25(OH) Vitamin D: Deficient <20 ng/mL Insufficient 20 - <30 ng/mL Sufficient 30-100 ng/mL Performed By: #### G FR, LIPID, TSH, CMP, VIDH #### [address] [address] .Auto Diffon 06-15-2023 Basophil, Absolute 0.1 10 3/mcL Normal 0.0-0.2 [facility] ([place]) Comment on above: Performed By: #### G FR, LIPID, TSH, CMP, VIDH #### [address] [address] Basophils/100 WBC (Bld) 1.1 % Normal 0.0-2.5 [facility] ([place]) Comment on above: Performed By: #### G FR, LIPID, TSH, CMP, VIDH #### [address] [address] Eosinophil, Absolute 0.1 10 3/mcL Normal 0.0-0.4 [facility] ([place]) Comment on above: Performed By: #### G FR, LIPID, TSH, CMP, VIDH #### [address] [address] Eosinophils/100 WBC (Bld) 1.2 % Normal 0.0-7.0 [facility] ([place]) Comment on above: Performed By: #### G FR, LIPID, TSH, CMP, VIDH #### [address] [address] Lymphocyte, Absolute 1.5 10 3/mcL Normal 0.8-3.9 [facility] ([place]) Comment on above: Performed By: #### G FR, LIPID, TSH, CMP, VIDH #### [address] [address] Lymphocytes/100 WBC (Bld) 27.3 % Normal 10.0-50.0 [facility] ([place]) Comment on above: Performed By: #### G FR, LIPID, TSH, CMP, VIDH #### [address] [address] Monocyte, Absolute 0.6 10 3/mcL Normal 0.2-1.0 [facility] ([place]) Comment on above: Performed By: #### G FR, LIPID, TSH, CMP, VIDH #### [address] [address] Monocytes/100 WBC (Bld) 11.6 % Normal 1.7-13.0 [facility] ([place]) Comment on above: Performed By: #### G FR, LIPID, TSH, CMP, VIDH #### [address] [address] Neutrophils/100 WBC (Bld) 58.8 % Normal 37.0-80.0 [facility] ([place]) Comment on above: Performed By: #### G FR, LIPID, TSH, CMP, VIDH #### [address] [address] .GFRon 06-15-2023 GFR 90 ml/min/1.73sqm Normal [facility] ([place]) Comment on above: Result Comment: GFR Population mean for , Non- Americans Ages 20-29 = 116 mL/min/1.73 sq.m. Ages 30-39 = 107 mL/min/1.73 sq.m. Ages 40-49 = 99 mL/min/1.73 sq.m. Ages 50-59 = 93 mL/min/1.73 sq.m. Ages 60-69 = 85 mL/min/1.73 sq.m. Ages 70+ = 75 mL/min/1.73 sq.m. Chronic Kidney Disease: Less than 60 mL/min/1.73 square meters End Stage Renal Disease: Less than 15 mL/min/1.73 square meters Performed By: #### G FR, LIPID, TSH, CMP, VIDH #### [address] [address] GFR Non- 74 ml/min/1.73sqm Normal [facility] ([place]) Comment on above: Result Comment: GFR Population mean for , Non- Americans Ages 20-29 = 116 mL/min/1.73 sq.m. Ages 30-39 = 107 mL/min/1.73 sq.m. Ages 40-49 = 99 mL/min/1.73 sq.m. Ages 50-59 = 93 mL/min/1.73 sq.m. Ages 60-69 = 85 mL/min/1.73 sq.m. Ages 70+ = 75 mL/min/1.73 sq.m. Chronic Kidney Disease: Less than 60 mL/min/1.73 square meters End Stage Renal Disease: Less than 15 mL/min/1.73 square meters Performed By: #### G FR, LIPID, TSH, CMP, VIDH #### [address] [address] .NEUABSon 06-15-2023 Neutrophil, Absolute 3.1 10 3/mcL Normal 2.9-6.2 [facility] ([place]) Comment on above: Performed By: #### G FR, LIPID, TSH, CMP, VIDH #### [address] [address] AMYon 06-15-2023 Amylase [Catalytic activity/Vol] 54 U/L Normal 25-115 [facility] ([place]) Comment on above: Performed By: #### G FR, LIPID, TSH, CMP, VIDH #### [address] [address] CBCon 06-15-2023 Erythrocyte distribution width (RBC) [Ratio] 13.2 % Normal 11.5-14.5 [facility] ([place]) Comment on above: Performed By: #### G FR, LIPID, TSH, CMP, VIDH #### [place] [address] Hematocrit (Bld) [Volume fraction] 41.4 % Normal 37.0-47.0 [facility] ([place]) Comment on above: Performed By: #### G FR, LIPID, TSH, CMP, VIDH #### [place] [id number] Hgb 14.1 G/dL Normal 12.0-16.0 [facility] ([place]) Comment on above: Performed By: #### G FR, LIPID, TSH, CMP, VIDH #### [address] [address] MCH (RBC) [Entitic mass] 32.0 pg High 27.0-31.2 [facility] ([place]) Comment on above: Performed By: #### G FR, LIPID, TSH, CMP, VIDH #### [place] [id number] MCHC 34.0 G/dL Normal 33.0-37.0 [facility] ([place]) Comment on above: Performed By: #### G FR, LIPID, TSH, CMP, VIDH #### [address] [address] MCV (RBC) [Entitic vol] 94.2 fL High 80.0-94.0 [facility] ([place]) Comment on above: Performed By: #### G FR, LIPID, TSH, CMP, VIDH #### [place] [id number] Platelet 249 10 3/mcL Normal 130-400 [facility] ([place]) Comment on above: Performed By: #### G FR, LIPID, TSH, CMP, VIDH #### [address] [address] Platelet mean volume (Bld) [Entitic vol] 7.1 fL Low 7.4-10.4 [facility] ([place]) Comment on above: Performed By: #### G FR, LIPID, TSH, CMP, VIDH #### [address] [address] RBC 4.40 10 6/mcL Normal 4.20-5.40 [facility] ([place]) Comment on above: Performed By: #### G FR, LIPID, TSH, CMP, VIDH #### [address] [address] WBC 5.3 10 3/mcL Normal 4.6-10.8 [facility] ([place]) Comment on above: Performed By: #### G FR, LIPID, TSH, CMP, VIDH #### [address] [address] CMPon 06-15-2023 Albumin Level 3.6 G/dL Normal 3.4-4.8 [facility] ([place]) Comment on above: Performed By: #### G FR, LIPID, TSH, CMP, VIDH #### [address] [address] Albumin/Globulin [Mass ratio] 1.1 {ratio} Normal 1.1-2.5 [facility] ([place]) Comment on above: Performed By: #### G FR, LIPID, TSH, CMP, VIDH #### [address] [address] ALP [Catalytic activity/Vol] 60 U/L Normal 40-135 [facility] ([place]) Comment on above: Performed By: #### G FR, LIPID, TSH, CMP, VIDH #### [address] [address] ALT [Catalytic activity/Vol] 18 U/L Normal 14-59 [facility] ([place]) Comment on above: Performed By: #### G FR, LIPID, TSH, CMP, VIDH #### [address] [address] AST [Catalytic activity/Vol] 15 U/L Normal 10-40 [facility] ([place]) Comment on above: Performed By: #### G FR, LIPID, TSH, CMP, VIDH #### [address] [address] Bili Total 1.2 mg/dL High 0.2-1.0 [facility] ([place]) Comment on above: Result Comment: Use of this assay is not recommended for patients undergoing treatment with eltrombopag due to the potential for falsely elevated results. Performed By: #### G FR, LIPID, TSH, CMP, VIDH #### [address] [address] BUN/Creatinine Ratio 20 ratio Normal 7-27 [facility] ([place]) Comment on above: Performed By: #### G FR, LIPID, TSH, CMP, VIDH #### [address] [address] Calcium [Mass/Vol] 9.2 mg/dL Normal 8.4-10.2 [facility] ([place]) Comment on above: Performed By: #### G FR, LIPID, TSH, CMP, VIDH #### [address] [address] Chloride [Moles/Vol] 103 mmol/L Normal 98-107 [facility] ([place]) Comment on above: Performed By: #### G FR, LIPID, TSH, CMP, VIDH #### [address] [address] CO2 [Moles/Vol] 25 mmol/L Normal 23-31 [facility] ([place]) Comment on above: Performed By: #### G FR, LIPID, TSH, CMP, VIDH #### [address] [address] Creatinine [Mass/Vol] 0.76 mg/dL Normal 0.55-1.02 [facility] ([place]) Comment on above: Performed By: #### G FR, LIPID, TSH, CMP, VIDH #### [address] [address] Electrolyte Balance 11.0 mEq/L Normal 4.0-15.0 [facility] ([place]) Comment on above: Performed By: #### G FR, LIPID, TSH, CMP, VIDH #### [address] [address] Globulin 3.3 G/dL Normal [facility] ([place]) Comment on above: Performed By: #### G FR, LIPID, TSH, CMP, VIDH #### [address] [address] Glucose [Mass/Vol] 104 mg/dL Normal 83-110 [facility] ([place]) Comment on above: Performed By: #### G FR, LIPID, TSH, CMP, VIDH #### [address] [address] Potassium [Moles/Vol] 4.6 mmol/L Normal 3.5-5.1 [facility] ([place]) Comment on above: Performed By: #### G FR, LIPID, TSH, CMP, VIDH #### [address] [address] Sodium [Moles/Vol] 139 mmol/L Normal 136-145 [facility] ([place]) Comment on above: Performed By: #### G FR, LIPID, TSH, CMP, VIDH #### [address] [address] Total Protein 6.9 G/dL Normal 6.4-8.2 [facility] ([place]) Comment on above: Performed By: #### G FR, LIPID, TSH, CMP, VIDH #### [address] [address] Urea nitrogen [Mass/Vol] 15 mg/dL Normal 7-18 [facility] ([place]) Comment on above: Performed By: #### G FR, LIPID, TSH, CMP, VIDH #### [address] [address] HEPACon 06-15-2023 Hep A IgM Ab Non-Reactive Normal Non-Reacti Count includes the [facility] ([place]) Comment on above: Performed By: #### G FR, LIPID, TSH, CMP, VIDH #### [place] [address] Hep A IgM Ab Int [facility] ([place]) Comment on above: Result Comment: No s erological evidence of a current Hepatitis A infection. See Interp Performed By: #### G FR, LIPID, TSH, CMP, VIDH #### [place] [address] Hep B Core [facility] Comment on above: Performed By: #### G FR, LIPID, TSH, CMP, VIDH #### [place] [address] Hep B Core IgM Ab Int [facility] ([place]) Comment on above: Result Comment: Samp les with a value < 0.80 Index are considered nonreactive (negative) for IgM antibodies to hepatitis B core antigen. See Interp Performed By: #### G FR, LIPID, TSH, CMP, VIDH #### [place] [address] Hep B Surf Ag Non-Reactive [facility] ([place] Comment on above: Performed By: #### G FR, LIPID, TSH, CMP, VIDH #### [place] [address] Hep C Ab Non-Reactive Normal [facility] ([place] Comment on above: Performed By: #### G FR, LIPID, TSH, CMP, VIDH #### [place] [address] Hep C Ab Int [facility] ([place]) Comment on above: Result Comment: Nonr eactive: Samples with a value < 0.80 are considered nonreactive (negative) for antibodies to HCV. A negative test result does not exclude the possibility of exposure to or infection with HCV. HCV antibodies may be undetectable in some stages of the infection and in some clinical conditions. See Interp Performed By: #### G FR, LIPID, TSH, CMP, VIDH #### [address]nu [place] [id number] [place] [address] LABORATORYOrdered By: SYSTEM SYSTEM on 06-15-2023 Albumin BCP dye [Mass/Vol] 3.6 G/dL Normal 3.4 - 4.8 G/dL AO ADM SS Albumin/Globulin [Mass ratio] 1.1 {ratio} Normal 1.1 - 2.5 ratio AO ADM SS ALP [Catalytic activity/Vol] 60 U/L Normal 40 - 135 U/L AO ADM SS ALT With P-5'-P [Catalytic activity/Vol] 18 U/L Normal 14 - 59 U/L AO ADM SS Amylase [Catalytic activity/Vol] 54 U/L Normal 25 - 115 U/L AO ADM SS AST With P-5'-P [Catalytic activity/Vol] 15 U/L Normal 10 - 40 U/L AO ADM SS Basophil, Absolute 0.1 103/mcL Normal 0.0 - 0.2 10^3/mcL AO Workflow SS Basophils/100 WBC (Bld) 1.1 % Normal 0.0 - 2.5 % AO Workflow SS Bilirubin [Mass/Vol] 1.2 mg/dL High 0.2 - 1 .0 mg/dL AO ADM SS Comment on above: Interpretive Data: U se of this assay is not recommended for patients undergoing treatment with eltrombopag due to the potential for falsely elevated results. Calcium [Mass/Vol] 9.2 mg/dL Normal 8.4 - 10. 2 mg/dL AO ADM SS Chloride [Moles/Vol] 103 mmol/L Normal 98 - 10 7 mmol/L AO ADM SS CO2 [Moles/Vol] 25 mmol/L Normal 23 - 31 mmol/L AO ADM SS Creatinine [Mass/Vol] 0.76 mg/dL Normal 0.55 - 1.02 mg/dL AO ADM SS Electrolyte Balance 11.0 mEq/L Normal 4.0 - 15 .0 mEq/L AO ADM SS Eosinophil, Absolute 0.1 103/mcL Normal 0.0 - 0 .4 10^3/mcL AO Workflow SS Eosinophils/100 WBC (Bld) 1.2 % Normal 0.0 - 7.0 % AO Workflow SS Erythrocyte distribution width (RBC) [Ratio] 13.2 % Normal 11.5 - 14.5 % AO Workflow SS GFR/1.73 sq M.predicted among blacks MDRD (S/P/Bld) [Vol rate/Area] 90 ml/min/1.73sqm Invalid Interpretation Code AO Chemistry S Comment on above: Interpretive Data: GFR Population mean for , Non- Americans Ages 20-29 = 116 mL/min/1.73 sq.m. Ages 30-39 = 107 mL/min/1.73 sq.m. Ages 40-49 = 99 mL/min/1.73 sq.m. Ages 50-59 = 93 mL/min/1.73 sq.m. Ages 60-69 = 85 mL/min/1.73 sq.m. Ages 70+ = 75 mL/min/1.73 sq.m. Chronic Kidney Disease: Less than 60 mL/min/1.73 square meters End Stage Renal Disease: Less than 15 mL/min/1.73 square meters GFR/1.73 sq M.predicted among non-blacks MDRD (S/P/Bld) [Vol rate/Area] 74 ml/min/1.73sqm Invalid Interpretation Code AO Chemistry S Comment on above: Interpretive Data: GFR Population mean for , Non- Americans Ages 20-29 = 116 mL/min/1.73 sq.m. Ages 30-39 = 107 mL/min/1.73 sq.m. Ages 40-49 = 99 mL/min/1.73 sq.m. Ages 50-59 = 93 mL/min/1.73 sq.m. Ages 60-69 = 85 mL/min/1.73 sq.m. Ages 70+ = 75 mL/min/1.73 sq.m. Chronic Kidney Disease: Less than 60 mL/min/1.73 square meters End Stage Renal Disease: Less than 15 mL/min/1.73 square meters Globulin 3.3 G/dL Invalid Interpretation Code AO ADM SS Glucose [Mass/Vol] 104 mg/dL Normal 83 - 110 mg/dL AO ADM SS Hematocrit (Bld) [Volume fraction] 41.4 % Normal 37.0 - 47.0 % AO Workflow SS Hemoglobin (Bld) [Mass/Vol] 14.1 G/dL Normal 12.0 - 16.0 G/dL AO Workflow SS Lipase [Catalytic activity/Vol] 38 U/L Normal 16 - 77 U/L AO ADM SS Lymphocyte, Absolute 1.5 103/mcL Normal 0.8 - 3 .9 10^3/mcL AO Workflow SS Lymphocytes/100 WBC (Bld) 27.3 % Normal 10.0 - 50.0 % AO Workflow SS MCH (RBC) [Entitic mass] 32.0 pg High 27.0 - 31.2 pg AO Workflow SS MCHC 34.0 G/dL Normal 33.0 - 37.0 G/dL AO Workflow SS MCV (RBC) [Entitic vol] 94.2 fL High 80.0 - 94.0 fL AO Workflow SS Monocyte, Absolute 0.6 103/mcL Normal 0.2 - 1.0 10^3/mcL AO Workflow SS Monocytes/100 WBC (Bld) 11.6 % Normal 1.7 - 13.0 % AO Workflow SS Neutrophil, Absolute 3.1 103/mcL Normal 2.9 - 6 .2 10^3/mcL AO Workflow SS Neutrophils/100 WBC (Bld) 58.8 % Normal 37.0 - 80.0 % AO Workflow SS Platelet mean volume (Bld) [Entitic vol] 7.1 fL Low 7.4 - 10.4 fL AO Workflow SS Platelets (Bld) [#/Vol] 249 103/mcL Normal 130 - 400 10^3/mcL AO Workflow SS Potassium [Moles/Vol] 4.6 mmol/L Normal 3.5 - 5.1 mmol/L AO ADM SS Protein [Mass/Vol] 6.9 G/dL Normal 6.4 - 8.2 G/dL AO ADM SS RBC (Bld) [#/Vol] 4.40 106/mcL Normal 4.20 - 5.40 10^6/mcL AO Workflow SS Sodium [Moles/Vol] 139 mmol/L Normal 136 - 145 mmol/L AO ADM SS Urea nitrogen [Mass/Vol] 15 mg/dL Normal 7 - 18 mg/dL AO ADM SS Urea nitrogen/Creatinine [Mass ratio] 20 ratio Normal 7 - 27 ratio AO ADM SS WBC (Bld) [#/Vol] 5.3 103/mcL Normal 4.6 - 10.8 10^3/mcL AO Workflow SS LABORATORYOrdered By: Juli Zavaleta on 06-15-2023 HAV IgM IA Ql Non-Reactive (06/15/23 10:18 AM) Normal Non-Reacti ve AH ADM SS HAV IgM IA Ql No serological evide nce of a current Hepatitis A infection. Invalid Interpretation Code Chemistry S HBV core IgM IA Ql Non-Reactive (06/15/23 10:18 AM) Normal Non-Reacti ve AH ADM SS HBV core IgM IA Ql Samples with a value < 0.80 Index are considered nonreactive (negative) for IgM antibodies to hepatitis B core antigen. Invalid Interpretation Code Chemistry S HBV surface Ag IA Ql Non-Reactive (06/15/23 10:18 AM) Normal Non-Reacti ve AH ADM SS HCV Ab IA Ql Non-Reactive (06/15/23 10:18 AM) Normal Non-Reacti ve AH ADM SS HCV Ab IA Ql Nonreactive: Samples with a value < 0.80 are considered nonreactive (negative) for antibodies to HCV.A negative test result does not exclude the possibility of exposure to or infection with HCV. HCV antibodies may be undetectable in some stages of the infection and in some clinical conditions. Invalid Interpretation Code Chemistry S LIPon 06-15-2023 Lipase Level 38 U/L Normal 16-77 [facility] ([place]) Comment on above: Performed By: #### G FR, LIPID, TSH, CMP, VIDH #### [place] [address] MRI LIVERon 05-21-2023 MRI LIVER ORIGINAL EXAMINATION: MRI OF THE ABDOMEN LIMITED without and with CONTRAST, 05/21/2023 2:34 pm TECHNIQUE: Multiplanar multisequence MRI of the abdomen limited was performed without and with the administration of intravenous contrast. Liver protocol. COMPARISON: Ultrasound study May 01, 2023 HISTORY: ORDERING SYSTEM PROVIDED HISTORY: Reason for Exam: Abnormal mass in liver on ultrasound FINDINGS: Chemical shift imaging is unremarkable. Multiple liver lesions are visible. The lesion of interest at the central right hepatic lobe measures 3.3 cm in size and is well-circumscribed but has a lobulated contour. This lesion shows peripheral intense enhancement which is somewhat nodular, and there is lesion fill-in and contrast retention at delayed imaging. This is compatible with a cavernous hemangioma. Additional similar smaller lesions are identified, also representing cavernous hemangiomas. These are seen at the more inferior central right hepatic lobe and at the anterior aspect of the left hepatic lobe. A subcentimeter lesion is noted at the posterior dome of the liver, also compatible with hemangioma. No suspicious liver lesions are identified. A hiatal hernia is noted. No additional contributory abnormality identified. IMPRESSION: Multiple liver cavernous hemangiomas, with the largest 1 in the central right hepatic lobe corresponding to the ultrasound finding. Other smaller cavernous hemangioma is also seen. No suspicious lesion is evident on this exam. Interpreted by: Aba Funez MD Preliminary Report By: Aba Funez MD Electronically signed By Aba Funez MD Dictated Date: 05/21/2023 2:36:10 PM Prelim Date: 05/21/2023 2:40:47 PM Sign Date: 05/21/2023 2:40:47 PM Ordering Provider: DAISY PENN [facility] ([place]) US ABDOMEN COMPLETEon 2022 US ABDOMEN COMPLETE ORIGINAL EXAMINATION: COMPLETE ABDOMINAL [id number]/17/2023 9:09 am ULTRASOUND ABDOMEN COMPLETE COMPARISON: None HISTORY: ORDERING SYSTEM PROVIDED HISTORY: Reason for Exam: Elevated liver enzymes, alcohol abuse, FINDINGS: The liver is mildly heterogeneous and coarsened with increased echogenicity. There are small areas of focal fatty sparing adjacent to the gallbladder. In the anterior aspect of the liver probably anterior to the kaye hepatis there is a geographic masslike area of increased echogenicity that is 2.9 x 2.5 x 3.2 cm. No other focal liver lesion is seen. No obvious nodularity of the liver margins. There is no intrahepatic biliary duct dilatation. The common duct is mm at the akye hepatis. The gallbladder is distended satisfactorily without calculi, wall thickening, pericholecystic edema or tenderness. The pancreas as visualized in the region of the head, neck and body is normal in size and echogenicity for patient's age. Some portions are poorly seen due to obscuration by bowel gas artifacts. No free fluid is seen in the abdomen. The spleen is normal in size and echogenic appearance. Limited survey images of the kidneys show normal cortical thickness and echogenicity and no pelvocaliectasis. There is a tiny 7 mm benign cyst of the right kidney.. Visualized IVC and aorta are not abnormally dilated. Some portions of these vessels are obscured by artifacts. IMPRESSION: Hepatic steatosis or other diffuse hepatocellular disease. No acute findings. Geographic masslike abnormality in the liver. This may be an area of focal fatty infiltration, hemangioma or other type of mass. Further characterization with a dedicated MRI of the liver without and with contrast is suggested. Interpreted by: Anselmo Mesa MD Preliminary Report By: Anselmo Mesa MD Electronically signed By Anselmo Mesa MD Dictated Date: 05/03/2023 1:57:26 PM Prelim Date: 05/03/2023 1:59:51 PM Sign Date: 05/03/2023 1:59:51 PM Ordering Provider: DAISY PENN [facility] ([place]) .GFRon 04-16-2023 GFR 93 ml/min/1.73sqm [facility] ([place]) Comment on above: Result Comment: GFR Population mean for , Non- Americans Ages 20-29 = 116 mL/min/1.73 sq.m. Ages 30-39 = 107 mL/min/1.73 sq.m. Ages 40-49 = 99 mL/min/1.73 sq.m. Ages 50-59 = 93 mL/min/1.73 sq.m. Ages 60-69 = 85 mL/min/1.73 sq.m. Ages 70+ = 75 mL/min/1.73 sq.m. Chronic Kidney Disease: Less than 60 mL/min/1.73 square meters End Stage Renal Disease: Less than 15 mL/min/1.73 square meters Performed By: #### G FR, LIPID, TSH, CMP, VIDH #### [place] [address] GFR Non- 77 ml/min/1.73sqm [facility] ([place]) Comment on above: Result Comment: GFR Population mean for , Non- Americans Ages 20-29 = 116 mL/min/1.73 sq.m. Ages 30-39 = 107 mL/min/1.73 sq.m. Ages 40-49 = 99 mL/min/1.73 sq.m. Ages 50-59 = 93 mL/min/1.73 sq.m. Ages 60-69 = 85 mL/min/1.73 sq.m. Ages 70+ = 75 mL/min/1.73 sq.m. Chronic Kidney Disease: Less than 60 mL/min/1.73 square meters End Stage Renal Disease: Less than 15 mL/min/1.73 square meters Performed By: #### G FR, LIPID, TSH, CMP, VIDH #### [address] [address] BILAIon 04-16-2023 Bili Indirect 1.5 mg/dL Normal [facility] ([place]) Comment on above: Performed By: #### C MP, GFR, BILAI #### [address] [address] Bili Direct 0.3 mg/dL High 0.0-0.2 [facility] ([place]) Comment on above: Result Comment: Use of this assay is not recommended for patients undergoing treatment with eltrombopag due to the potential for falsely elevated results. Performed By: #### C MP, GFR, BILAI #### [place] [id number] Bili Total 1.8 mg/dL High 0.2-1.0 [facility] ([place]) Comment on above: Result Comment: Use of this assay is not recommended for patients undergoing treatment with eltrombopag due to the potential for falsely elevated results. Performed By: #### C MP, GFR, BILAI #### [address] [address] Performed By: #### G FR, LIPID, TSH, CMP, VIDH #### [address] [address] CMPon 04-16-2023 Albumin Level 3.9 G/dL Normal 3.4-4.8 [facility] ([place]) Comment on above: Performed By: #### G FR, LIPID, TSH, CMP, VIDH #### [address] [address] Albumin/Globulin [Mass ratio] 1.1 {ratio} Normal 1.1-2.5 [facility] ([place]) Comment on above: Performed By: #### G FR, LIPID, TSH, CMP, VIDH #### [address] [address] ALP [Catalytic activity/Vol] 58 U/L Normal 40-135 [facility] ([place]) Comment on above: Performed By: #### G FR, LIPID, TSH, CMP, VIDH #### [address] [address] ALT [Catalytic activity/Vol] 19 U/L Normal 14-59 [facility] ([place]) Comment on above: Performed By: #### G FR, LIPID, TSH, CMP, VIDH #### [address] [address] AST [Catalytic activity/Vol] 16 U/L Normal 10-40 [facility] ([place]) Comment on above: Performed By: #### G FR, LIPID, TSH, CMP, VIDH #### [address] [address] BUN/Creatinine Ratio 20 ratio Normal 7-27 [facility] ([place]) Comment on above: Performed By: #### G FR, LIPID, TSH, CMP, VIDH #### [address] [address] Calcium [Mass/Vol] 9.1 mg/dL Normal 8.4-10.2 [facility] ([place]) Comment on above: Performed By: #### G FR, LIPID, TSH, CMP, VIDH #### [address] [address] Chloride [Moles/Vol] 100 mmol/L Normal 98-107 [facility] ([place]) Comment on above: Performed By: #### G FR, LIPID, TSH, CMP, VIDH #### [address] [address] CO2 [Moles/Vol] 28 mmol/L Normal 23-31 [facility] ([place]) Comment on above: Performed By: #### G FR, LIPID, TSH, CMP, VIDH #### [address] [address] Creatinine [Mass/Vol] 0.74 mg/dL Normal 0.55-1.02 [facility] ([place]) Comment on above: Performed By: #### G FR, LIPID, TSH, CMP, VIDH #### [address] [address] Electrolyte Balance 9.0 mEq/L Normal 4.0-15.0 [facility] ([place]) Comment on above: Performed By: #### G FR, LIPID, TSH, CMP, VIDH #### [address] [address] Globulin 3.4 G/dL Normal [facility] ([place]) Comment on above: Performed By: #### G FR, LIPID, TSH, CMP, VIDH #### [address] [address] Glucose [Mass/Vol] 105 mg/dL Normal 83-110 [facility] ([place]) Comment on above: Performed By: #### G FR, LIPID, TSH, CMP, VIDH #### [address] [address] Potassium [Moles/Vol] 4.3 mmol/L Normal 3.5-5.1 [facility] ([place]) Comment on above: Performed By: #### G FR, LIPID, TSH, CMP, VIDH #### [address] [address] Sodium [Moles/Vol] 137 mmol/L Normal 136-145 [facility] ([place]) Comment on above: Performed By: #### G FR, LIPID, TSH, CMP, VIDH #### [address] [address] Total Protein 7.3 G/dL Normal 6.4-8.2 [facility] ([place]) Comment on above: Performed By: #### G FR, LIPID, TSH, CMP, VIDH #### [address] [address] Urea nitrogen [Mass/Vol] 15 mg/dL Normal 7-18 [facility] ([place]) Comment on above: Performed By: #### G FR, LIPID, TSH, CMP, VIDH #### [address] [address] LABORATORYOrdered By: SYSTEM SYSTEM on 04-16-2023 Albumin BCP dye [Mass/Vol] 3.9 G/dL Invalid Interpretation Code 3.4 - 4.8 G/dL AO ADM SS Albumin/Globulin [Mass ratio] 1.1 {ratio} Invalid Interpretation Code 1.1 - 2.5 ratio AO ADM SS ALP [Catalytic activity/Vol] 58 U/L Invalid Interpretation Code 40 - 135 U/L AO ADM SS ALT With P-5'-P [Catalytic activity/Vol] 19 U/L Invalid Interpretation Code 14 - 59 U/L AO ADM SS AST With P-5'-P [Catalytic activity/Vol] 16 U/L Invalid Interpretation Code 10 - 40 U/L AO ADM SS Bilirubin.direct [Mass/Vol] 0.3 mg/dL Invalid Interpretation Code 0.0 - 0.2 mg/dL AO ADM SS Comment on above: Interpretive Data: U se of this assay is not recommended for patients undergoing treatment with eltrombopag due to the potential for falsely elevated results. Bilirubin.direct [Mass/Vol] 1.5 mg/dL Invalid Interpretation Code AO Chemistry S Calcium [Mass/Vol] 9.1 mg/dL Invalid Interpretation Code 8.4 - 10.2 mg/dL AO ADM SS Chloride [Moles/Vol] 100 mmol/L Invalid Interpretation Code 98 - 107 mmol/L AO ADM SS CO2 [Moles/Vol] 28 mmol/L Invalid Interpretation Code 23 - 31 mmol/L AO ADM SS Creatinine [Mass/Vol] 0.74 mg/dL Invalid Interpretation Code 0.55 - 1.02 mg/dL AO ADM SS Electrolyte Balance 9.0 mEq/L Invalid Interpretation Code 4.0 - 15.0 mEq/L AO ADM SS GFR/1.73 sq M.predicted among blacks MDRD (S/P/Bld) [Vol rate/Area] 93 ml/min/1.73sqm Invalid Interpretation Code AO Chemistry S Comment on above: Interpretive Data: GFR Population mean for , Non- Americans Ages 20-29 = 116 mL/min/1.73 sq.m. Ages 30-39 = 107 mL/min/1.73 sq.m. Ages 40-49 = 99 mL/min/1.73 sq.m. Ages 50-59 = 93 mL/min/1.73 sq.m. Ages 60-69 = 85 mL/min/1.73 sq.m. Ages 70+ = 75 mL/min/1.73 sq.m. Chronic Kidney Disease: Less than 60 mL/min/1.73 square meters End Stage Renal Disease: Less than 15 mL/min/1.73 square meters GFR/1.73 sq M.predicted among non-blacks MDRD (S/P/Bld) [Vol rate/Area] 77 ml/min/1.73sqm Invalid Interpretation Code AO Chemistry S Comment on above: Interpretive Data: GFR Population mean for , Non- Americans Ages 20-29 = 116 mL/min/1.73 sq.m. Ages 30-39 = 107 mL/min/1.73 sq.m. Ages 40-49 = 99 mL/min/1.73 sq.m. Ages 50-59 = 93 mL/min/1.73 sq.m. Ages 60-69 = 85 mL/min/1.73 sq.m. Ages 70+ = 75 mL/min/1.73 sq.m. Chronic Kidney Disease: Less than 60 mL/min/1.73 square meters End Stage Renal Disease: Less than 15 mL/min/1.73 square meters Globulin 3.4 G/dL Invalid Interpretation Code AO ADM SS Glucose [Mass/Vol] 105 mg/dL Invalid Interpretation Code 83 - 110 mg/dL AO ADM SS Potassium [Moles/Vol] 4.3 mmol/L Invalid Interpretation Code 3.5 - 5.1 mmol/L AO ADM SS Protein [Mass/Vol] 7.3 G/dL Invalid Interpretation Code 6.4 - 8.2 G/dL AO ADM SS Sodium [Moles/Vol] 137 mmol/L Invalid Interpretation Code 136 - 145 mmol/L AO ADM SS Urea nitrogen [Mass/Vol] 15 mg/dL Invalid Interpretation Code 7 - 18 mg/dL AO ADM SS Urea nitrogen/Creatinine [Mass ratio] 20 ratio Invalid Interpretation Code 7 - 27 ratio AO ADM SS Laboratory - Chemistry and C hemistry - challengeOrdered By: SYSTEM SYSTEM on 04-16-2023 Bilirubin [Mass/Vol] 1.8 mg/dL Invalid Interpretation Code 0.2 - 1.0 mg/dL AO ADM SS Comment on above: Interpretive Data: U se of this assay is not recommended for patients undergoing treatment with eltrombopag due to the potential for falsely elevated results. LABORATORYOrdered By: Jennifer Toney on 12-26-2022 Albumin DL <= 20 mg/L (U) [Mass/Vol] 468 mcg/dL Invalid Interpretation Code AO ADM SS Albumin/Creatinine DL <= 20 mg/L (U) [Mass ratio] 10 mcg/mg Invalid Interpretation Code 0 - 30 mcg/mg AO ADM SS Creatinine (U) [Mass/Vol] 46.8 mg/dL Invalid Interpretation Code 28.0 - 117.0 mg/dL AO ADM SS CNPNon 02-07-2022 CNPN Telephone (RGMOB) -- YVES ORR ([id number]) 1950 F Date Time Provider Department 02/07/22 JOEL PRESTON RGIDB During your visit today, we recorded the following information about you: Saúl Moulton 02/07/2022 3:37 PM Signed Request for release of past mammogram records faxed to Medical records department. Forms scanned into [email or web address]. Allergies As of Date: 02/07/2022 (No Known Allergies) Date Reviewed: 09/03/2015 Reviewed by: Jailene Diane LPN - Fully Assessed Reason for Visit: Release Of Medical Records [2017] Prescriptions as of 02/07/2022 - albuterol HFA (PROVENTIL HFA, VENTOLIN HFA) 90 mcg/actuation inhaler Inhale 2 Puffs as instructed every 6 hours as needed for Wheezing/Shortness of Breath. - benzonatate (TESSALON PERLES) 100 mg capsule Take 1 capsule by mouth three times daily as needed for Cough. - traZODone (DESYREL) 50 mg tablet Take 1 tablet by mouth daily at bedtime. - lisinopril (ZESTRIL, PRINIVIL) 5 mg tablet Take 1 tablet by mouth once daily. - hydrochlorothiazide (HYDRODIURIL, ESIDRIX) 25 mg tablet Take 1 tablet by mouth once daily. - citalopram (CELEXA) 20 mg tablet Take 1 tablet by mouth once daily. - Benzonatate (TESSALON) 200 mg capsule Take 200 mg by mouth three times daily as needed for Cough. - Cholecalciferol, Vitamin D3, 5,000 unit Tab Take 1 tablet by mouth once daily. - loratadine (CLARITIN) 10 mg ORAL tablet Take 1 tablet by mouth once daily. TAKE ONE(1) TABLET DAILY FOR ALLERGIES, POST NASAL DRIP Problem List As Of Date 02/07/2022 Noted Resolved DEPRESSIVE DISORDER NEC [F32.89] ALLERGIC RHINITIS NOS [J30.9] Essential hypertension [I10] Vitamin D deficiency [E55.9] 12/18/2011 Hyperglycemia [R73.9] 12/18/2011 Alcohol abuse, daily use [F10.10] 12/18/2011 Encounter Status:Closed by SAÚL MOULTON on 02/07/22 Normal [facility] Vital Signs Date Time Vital Sign Value Performing Clinician Faci lity 02-19-2025 13:24-0400 Body height 162.[address] Sal Murphy MD Work Phone: [facility] 02-19-2025 13:24-0400 Body mass index (BMI) [Ratio] 30.6 kg/m2 Dr. Sal Murphy MD Work Phone: [facility] 02-19-2025 13:24-0400 Body weight 80.[address] Sal Murphy MD Work Phone: [facility] 02-19-2025 13:24-0400 Diastolic blood pressure 90 mm[Hg] Dr. Sal Murphy MD Work Phone: [facility] 02-19-2025 13:24-0400 Heart rate 87 /min Dr. Sal Murphy MD Work Phone: [facility] 02-19-2025 13:24-0400 Respiratory rate 15 /min Dr. Sal Murphy MD Work Phone: [facility] 02-19-2025 13:24-0400 SaO2% (BldA) [Mass fraction] 96 % Dr. Sal Murphy MD Work Phone: [facility] 02-19-2025 13:24-0400 Systolic blood pressure 142 mm[Hg] Dr. Sal Murphy MD Work Phone: [facility] Encounters Encounter Date Encounter Type Care Provider Facility Start: 02-19-2025 End: 02-19-[address] Sal Murphy MD -[facility] Work Phone: Start: 02-19-2025 End: 02-19-[address] Sal Murphy MD Work Phone: -[facility] Start: 02-11-2025 End: 02-11-[address] Sal Murphy MD Work Phone: -Laboratory Start: 02-11-2025 End: 02-11-[address] Sal Murphy MD -Laboratory Work Phone: Start: 02-11-2025 End: 02-11-2025 ambulatory Daisy Penn Facility:[facility] Start: 02-09-2025 End: 02-09-[address] Sal Murphy MD Work Phone: -Ultrasound [facility] Start: 02-09-2025 End: 02-09-[address] Sal Murphy MD -Ultrasound [facility] Work Phone: Start: 02-09-2025 End: 02-09-2025 ambulatory Daisy Penn Facility:[facility] Start: 10-07-2024 End: 10-11-2024 ambulatory DAISY FILI DO [facility] Start: 08-11-2024 End: 08-11-2024 ambulatory Daisyfreddie Gonzálesy Facility:[facility] Start: 07-11-2024 End: 07-11-2024 ambulatory DAISY FILI DO [facility] Start: 07-11-2024 End: 07-11-2024 Patient encounter procedure DAISY PENN DO [facility] Start: 06-19-2024 End: 06-19-2024 ambulatory DAISY FILI DO Facility:[facility] Start: 06-19-2024 End: 06-19-2024 Patient encounter procedure DAISY GEORGELAY DO [facility] Start: 03-04-2024 End: 03-04-2024 ambulatory DAISY FILI DO Facility:[facility] Start: 10-16-2023 End: 10-20-2023 ambulatory DAISY FILI DO Facility:[facility] Start: 10-16-2023 End: 10-20-2023 Outreach Lab DAISY GEORGELAY DO [facility] Start: 10-10-2023 End: 10-10-2023 ambulatory DAISY GEORGELAY DO Facility:[facility] Start: 10-10-2023 End: 10-10-2023 Patient encounter procedure DAISY GEORGELAY DO [facility] Start: 06-15-2023 End: 06-15-2023 ambulatory DAISY GEORGELAY DO Facility:[facility] Start: 06-15-2023 End: 06-15-2023 Patient encounter procedure DAISY Amarjit GONZÁLESY DO [facility] Start: 05-21-2023 End: 05-21-2023 ambulatory DAISY GEORGELAY DO Facility:[facility] Start: 05-21-2023 End: 05-21-2023 Patient encounter procedure DAISYFREDDIE GEORGELAY DO [facility] Start: 05-01-2023 End: 05-01-2023 ambulatory DAISY GONZÁLESY DO Facility:[facility] Start: 04-16-2023 End: 04-16-2023 ambulatory DAISY FILI DO Facility:[facility] Start: 04-16-2023 End: 04-16-2023 Patient encounter procedure DAISY GONZÁLESY DO [facility] Start: 02-08-2023 End: 02-08-2023 Patient encounter procedure DAISY PENN DO [facility] Start: 12-26-2022 End: 12-30-2022 Outreach Lab DAISY PENN DO [facility] Start: 02-07-2022 Telephone encounter Joel joseph MD Work Phone: Radiology Comment on above: Release Of Medical R ecords Procedures Date Procedure Procedure Detail Performing Clinician Start: 02-11-2025 Copper measurement, serum Dr. Sal Barnett and Work Phone: Comment on above: Detection Limit = 5Performed at: [address] [id number] Director: Shobha Yañez MD, Phone: [phone] Start: 02-09-[address] Bassam Murphy MD Work Phone: Start: 02-09-[address] Sal Murphy MD Work Phone: Comment on above: Test Ordered: [id number] Enhanced Liver Fibr osis (ELF)ELF(TM) Score 8.71 BN Reference Range: <9.80ELF(TM) Score Interpretation:Risk cut-offs to assess the likelihood of progressionto cirrhosis and liver-related clinical events within3.9 years following baseline ELF score (IQR: 14.0-22.4months)*: Lower risk < 9.80 Mid risk 9.80 - 11.29 Higher risk >11.29Note: The ELF(TM) Score is a unitless numerical value.*Arsen SA, Elpidio BARRIOS, Yvrose T, et al. Selonsertibfor patients with bridging fibrosis or compensatedcirrhosis due to PRAJAPATI: Results from randomized phaseIII STELLAR trials. J Hepatol. 2020 Jan;73(1):26-39.Performed at: [facility] Lab[address] [id number] Director: Shohba Yañez MD, Phone: [phone] at: [address] [id number] Director: Cristopher Sneed PhD, Phone: [phone] Start: 02-09-2025 Albumin/Globulin ratio Dr. Sal Murphy MD Work Phone: Start: 02-09-2025 Mxqsp-6-Assonyogyai measurement Dr. Ivonne Murphy MD Work Phone: Comment on above: Tiger[employer]ily Electrochemiluminescen ce Immunoassay(ECLIA)Values obtained with different assay methods or kits cannotbe used interchangeably. Results cannot be interpreted asabsolute evidence of the presence or absence of malignantdisease.This test is not interpretable in females. Start: 02-09-[address] Sal Murphy MD Work Phone: Comment on above: Performed at: [place] [id number] [place], [place] [id number] Director: Cristopher Sneed PhD, Phone: [phone] Start: 02-09-2025 Antibody to centromere measurement Dr. Sal Murphy MD Work Phone: Comment on above: Test not performed Start: 02-09-2025 Antibody to extractable nuclear antigen measurement Dr. Sal Murphy MD Work Phone: Comment on above: Test not performed Start: 02-09-2025 Antibody to QUETA-[address] Sal Murphy MD Work Phone: Comment on above: Test not performed Start: 02-09-2025 Antibody to lupus La protein measurement Dr. Sal Murphy MD Work Phone: Comment on above: Test not performed Start: 02-09-2025 Antibody to SS-A measurement Dr. Sal Murphy MD Work Phone: Comment on above: Test not performed Start: 02-09-[address] Sal Amaro nd, MD Work Phone: Comment on above: Test not performed Start: 02-09-[address] Sal Weiss Work Phone: Start: 02-09-2025 Hepatitis A virus antibody, IgM type Dr. Sal Murphy MD Work Phone: Comment on above: A negative anti-HAV IgM result suggests no recent orcurrent HAV infection. Start: 02-09-2025 Hepatitis B core antibody measurement, IgM type Dr. Sal Murphy MD Work Phone: Start: 02-09-2025 Hepatitis C antibody measurement Dr. Bassam Murphy MD Work Phone: Start: 02-09-[address] Sal Murphy MD Work Phone: Start: 02-09-2025 INSURANCE ADMINISTRATIVE ASSISTANT antibody measurement Dr. Sal Amaro nd, MD Work Phone: Comment on above: Test not performed Start: 02-09-2025 Serum inorganic phosphate measurement Dr. Sal Murphy MD Work Phone: Start: 02-09-2025 Total iron binding capacity measurement Dr. Sal Murphy MD Work Phone: Start: 03-27-2019 Colonoscopy DAISY PENN DO Start: 02-05-2014 Mammography Joel Preston MD Work Phone: Injury of ankle (disorder) Tiffany POWERSARIADNE PENN DO Comment on above: Left ankle sx w/ pins Plan of Treatment Date Care Activity Detail Author Start: 07-01-2022 Urine microalbumin profile DTAP,TDAP,TD (2 - Td or Tdap) [facility] Start: 03-16-2022 Influenza vaccination INFLUENZA (#1) [facility] Start: 07-16-2021 ADVANCE DIRECTIVE DISCUSSION ADVANCE DIRECTIVE DISCUSSION [facility] Start: 01-28-2016 LIPID SCREEN LIPID SCREEN [facility] Start: 12-27-2015 DIABETES SCREEN DIABETES SCREEN [facility] Start: 02-05-2015 Mammography MAMMOGRAM [facility] Start: 2014 BONE DENSITY BONE DENSITY [facility] Start: 2014 PNEUMOCOCCAL: 65+ (1 - PCV) PNEUMOCOCCAL: 65+ (1 - PCV) [facility] Start: 1999 SHINGRIX VACCINE (1 of 2) SHINGRIX VACCINE (1 of 2) [facility] Start: 1994 COLOGUARD (FIT-DNA) COLOGUARD (FIT-DNA) [facility] Start: 1994 Colonoscopy COLONOSCOPY [facility] Start: 1994 COLORECTAL CANCER SCREENING COLORECTAL CANCER SCREENING [facility] Start: [address] COLONOGRAPHY [facility] Start: 1994 FECAL OCCULT BLOOD FECAL OCCULT BLOOD [facility] Start: 1994 SIGMOIDOSCOPY SIGMOIDOSCOPY [facility] Start: 1967 HEPATITIS C SCREENING HEPATITIS C SCREENING [facility] Start: 1961 Adult depression screening assessment DEPRESSION SCREENING [facility] Start: 1950 COVID-19 VACCINE (#1) COVID-19 VACCINE (#1) [facility] Bilirubin.direct [Mass/volume] in Serum or Plasma [facility] C reactive protein [Mass/volume] in Serum or Plasma [facility] CBC W Auto Different ial panel - Blood [facility] Comprehensive metabo lic 2000 panel - Serum or Plasma [facility] Ferritin [Mass/volum e] in Serum or Plasma [facility] Gamma glutamyl transferase measurement [facility] Iron and Iron bindin g capacity panel - Serum or Plasma [facility] Procedure [facility] Prothrombin time [facility] Transferrin [Mass/vo lume] in Serum or Plasma [facility] Immunizations Immunization Date Immunization Notes Care Provider Fa jeri 06-20-2024 influenza, injectabl e, quadrivalent, contains preservative; Translations: [Fluad PF Prefilled Syringe ] DAISY PENN DO [facility] 04-17-2023 influenza, high dose seasonal, preservative-free; Translations: [Fluad Quadrivalent PF ] DAISY PENN DO [facility] 07-05-2022 influenza, high dose seasonal, preservative-free DAISY PENN DO [facility] 07-13-2021 influenza, high dose seasonal, preservative-free; Translations: [Fluad Quadrivalent PF ] DAISY PENN DO [facility] Comment on above: Early/Late Reason: O ther: 06-17-2021 SARS-CoV-2 mRNA (tozinameran) vaccine DAISY PENN DO [facility] Comment on above: Result Comment: 2020: [id number] 09-15-2020 SARS-CoV-2 mRNA (tozinameran) vaccine DAISY PENN DO [facility] Comment on above: Result Comment: 2020: [id number] 08-18-2020 SARS-CoV-2 mRNA (tozinameran) vaccine DAISY PENN DO [facility] Comment on above: Result Comment: 2020: [id number] 05-20-2020 pneumococcal polysaccharide vaccine, 23 valent; Translations: [Pneumovax 23] DAISY PENN DO [facility] 11-26-2018 pneumococcal conjuga te vaccine, 13 valent DAISY PENN DO [facility] 07-01-2012 tetanus toxoid, redu prince diphtheria toxoid, and acellular pertussis vaccine, adsorbed Joel Preston MD Work Phone: [facility] Payers Date Payer Category Payer Self-pay [id number] 2023 Medicare [id number] 2023 Private Health Insurance [id number] 2019 Private Health Insurance [id number] 2019 Medicare [id number] 2014 Medicare MEDICARE MEDICAR E A AND B [id number] 2014-Present [phone] [address] [address] [place] [address] Medicare [id number] 2014 Private Health Insurance [facility] AARP SUPPLEMENT [id number] 2014-Present [phone] [address] [place] [address] Indemnity [id number] 1950 Unknown [id number] 2.16.840.1.378031.3.579.2 .1950 Unknown [id number] 2.16840.1.454626.3.579.2 .1950 Unknown [id number] 2.16.840.1.392013.3.579.2 .1950 Unknown [id number] 2.16.840.1.437446.3.579.2 .1950 Unknown [id number] 2.16.840.1.398497.3.579.2 .1950 Unknown [id number] 2.16.840.1.493971.3.579.2 .1950 Unknown [id number] 2.16.840.1.637407.3.579.2 .1950 Unknown [id number] 2.16.840.1.280177.3.579.2 .1950 Unknown [id number] 2.16.840.1.885667.3.579.2 1950 Unknown [id number] 2.16.840.1.272628.3.579.2 .627 Unknown [id number] 2.16.840.1.597544.3.579.2 .462 Unknown [id number] 2.16.840.1.197870.3.579.2 .462 Unknown [id number] 2.16.840.1.632229.3.579.2 .462 Unknown [id number] 2.16.840.1.085832.3.579.2 .462 Social History Date Type Detail Facility Start: 08-15-2019 End: 08-11-2024 Tobacco smoking status PAIS Never smoked tobacco [facility] Start: 09-03-2015 Alcohol intake Current drinke r of alcohol (finding) [facility] Start: 1950 Sex Assigned At Not on file C [facility] Start: 1950 Sex Assigned At Female A [facility] Sexual Orientation [facility] Start: 09-10-2019 Sex Female (finding) [facility] Start: 06-26-2024 Alcohol Alcohol [facility] Start: 06-26-2024 Drugs Drugs [facility] Start: 06-26-2024 Lives Lives [facility] Start: 06-26-2024 Tobacco Use Tobacco Use [facility] Clinical Notes 02-07-2022 to 02-19-2025 Note Date & Type Note Facility 02-19-2025 Evaluation note Diagnosis Onset Date Resolution Alcoholic liver disease chronic February 19, 2025 1:17pm Hemangioma of liver chronic Augus t 2024 1:17pm 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 Daisy Penn DO Status: REG CLI Study:ABD Limited w/ Elastography Date of Exa m: 02/09/25 Exam# [id number] Ordering Dr: Shaka Murphy MD PROCEDURE: ABD LIMITED W/ ELASTOGRAPHY REASON FOR EXAM: LIVER FIBROSIS, HEMANGIOMA COMPARISON: None. TECHNIQUE: Right upper quadrant abdominal ultrasound. Biorasis ElastQ Imaging shear wave elastography for non-invasive assessment of liver tissue stiffness. Biorasis EPIQ Elite. FINDINGS: LIVER: Size: Unremarkable Length: 16.6 cm Echotexture: Normal Contour: Normal Lesions: Stable 1.8 cm 1.8 cm 1.9 cm hemangioma in the left lobe of the liver. Elastography: EQI Med: 6.4 kPa EQI Med Jaret: 1.45 m/s IQR/Med: 17.5 %* GALLBLADDER: Normal COMMON BILE DUCT: Dilated measuring up to 9 mm. . PANCREAS: Normal Visualized portions of the right kidney are unremarkable. No right upper quadrant ascites. US/ABD Limited w/ Elastography IMPRESSION: Mild hepatic fibrosis. Small hemangioma in the left lobe of the liver. Dilated common bile duct. Reference Values: SRU <1.37 m/s (5.7kPa): No to mild fibrosis 1.37 m/s - 2.2 m/s: Moderate to severe fibrosis >2.2 m/s (15kPa): Significant fibrosis / cirrhosis METAVIR Score F2 or higher: 1.34 m/s (5.7kPa) F3 or higher: 1.55 m/s (7.3kPa) F4: 1.80 m/s (10kPa) * If the IQR/Med is >30%, the variance in the measurements is a large and the accuracy of the measurement may be in question. Reading Location: [facility] CC: Dr. Daisy Penn DO; Dr. Sal Murphy MD ~ Armature Rewinder: Signed [facility]11-06-2023 Note ORIGINAL EXAMINATION: MRI OF THE ABDOMEN LIMITED without and with CONTRAST, 05/21/2023 2:34 pm TECHNIQUE: Multiplanar multisequence MRI of the abdomen limited was performed without and with the administration of intravenous contrast. Liver protocol. COMPARISON: Ultrasound study May 01, 2023 HISTORY: ORDERING SYSTEM PROVIDED HISTORY: Reason for Exam: Abnormal mass in liver on ultrasound FINDINGS: Chemical shift imaging is unremarkable. Multiple liver lesions are visible. The lesion of interest at the central right hepatic lobe measures 3.3 cm in size and is well-circumscribed but has a lobulated contour. This lesion shows peripheral intense enhancement which is somewhat nodular, and there is lesion fill-in and contrast retention at delayed imaging. This is compatible with a cavernous hemangioma. Additional similar smaller lesions are identified, also representing cavernous hemangiomas. These are seen at the more inferior central right hepatic lobe and at the anterior aspect of the left hepatic lobe. A subcentimeter lesion is noted at the posterior dome of the liver, also compatible with hemangioma. No suspicious liver lesions are identified. A hiatal hernia is noted. No additional contributory abnormality identified. IMPRESSION: Multiple liver cavernous hemangiomas, with the largest 1 in the central right hepatic lobe corresponding to the ultrasound finding. Other smaller cavernous hemangioma is also seen. No suspicious lesion is evident on this exam. Interpreted by: Aba Funez MD Preliminary Report By: Aba Funez MD Electronically signed By Aba Fnuez MD Dictated Date: 05/21/2023 2:36:10 PM Prelim Date: 05/21/2023 2:40:47 PM Sign Date: 05/21/2023 2:40:47 PM [facility]ing [facility] Note ORIGINAL FROM: [facility] [address], [place] [address] PROCEDURE FOR: YVES ORR [address] [place] [address] Home: PID#: [id number] Exam#: [id number] : 1950 Age: 72 TO: DAISY PENN DO [address] [address] Fax: NO FAX EXAMINATION: SCREENING DIGITAL BILATERAL MAMMOGRAM WITH TOMOSYNTHESIS, 02/08/2023 11:34 am TECHNIQUE: Screening mammography of the bilateral breasts was performed with tomosynthesis. 2D standard and 3D tomosynthesis combination imaging performed through both breasts in the MLO and CC projection. Computer aided detection was utilized in the interpretation of this exam. COMPARISON: 02/07/2022 HISTORY: Breast cancer screening. FINDINGS: BREAST DENSITY: Heterogeneously dense There are no significant masses or calcifications. IMPRESSION: No mammographic evidence of malignancy. Continued screening with annual mammograms is recommended. BIRADS: MAMMOGRAM BI-RADS: 1: Negative RECALL: 1 year screening RECALL TYPE: mammo LETTER SENT: Normal BI-RADS 1 and 2 Interpreted by: Bertin Rene MD Preliminary Report By: Bertin Rene MD Electronically signed By Bertin Rene MD Dictated Date: 02/08/2023 1:37:06 PM Prelim Date: 02/08/2023 1:43:39 PM Sign Date: 02/08/2023 1:43:39 PM Ordering Provider: DAISY PENN Vp Platforms: EDMUNDO CHANG RT(R) (M) letter sent: Normal BI-RADS 1 and 2 Mammogram BI[facility]RADS: [facility] Miscellaneous Notes* Telephone Encounter - Saúl Moulton - 02/07/2022 3:36 PM EDT Request for release of past mammogram records faxed to Medical records department. [facility] documented in [facility] encounter[facility] Hospital[facility] + Plan note Future Appointments Appointment Date:02/08/2023 11:30:00 AM Scheduled Provider: Location:[facility] Appointment Type:MA Mammogram Screening Bilateral w/ Khadar Appointment Date:03/28/2023 02:00:00 PM Scheduled Provider:DAISY PENN DO Location:[facility] Appointment Type:PC OV Follow Up Appointment Date:07/06/2023 02:00:00 PM Scheduled Provider:DAISY PENN DO Location:[facility] Appointment Type:PC Wellness Medicare Future Scheduled Tests Laboratory* Indirect Bilirubin - Panel 03/28/23 * Complete Metabolic Panel 03/28/23 Radiology* MA Mammo Screening Bilateral w/ Khadar 02/08/23 [facility] Evaluation + Plan note Future Appointments Appointment Date:03/28/2023 02:00:00 PM Scheduled Provider:DAISY PENN DO Location:[facility] Appointment Type:PC OV Follow Up Appointment Date:07/06/2023 02:00:00 PM Scheduled Provider:DAISY PENN DO Location:[facility] Appointment Type:PC Wellness Medicare Future Scheduled Tests Laboratory* Indirect Bilirubin - Panel 03/28/23 * Complete Metabolic Panel 03/28/23 [facility] Evaluation + Plan note Future Appointments Appointment Date:04/17/2023 03:30:00 PM Scheduled Provider:DAISY PENN DO Location:[facility] Appointment Type: OV Follow Up Appointment Date:07/06/2023 02:00:00 PM Scheduled Provider:DAISY PENN DO Location:[facility] Appointment Type:PC Wellness Medicare [facility] Evaluation + Plan note Future Appointments Appointment Date:06/19/2023 02:30:00 PM Scheduled Provider:DAISY PENN DO Location:[facility] Appointment Type:PC OV Appointment Date:07/06/2023 02:00:00 PM Scheduled Provider:DAISY PENN DO Location:[facility] Appointment Type:PC Wellness Medicare Future Scheduled Tests Laboratory* Amylase Level 06/17/23 * Lipase Level 06/17/23 * Acute Hepatitis Panel 06/17/23 * Complete Blood Count 06/17/23 * Complete Metabolic Panel 06/17/23 [facility] Evaluation + Plan note Future Appointments Appointment Date:06/19/2023 02:30:00 PM Scheduled Provider:DAISY PENN DO Location:[facility] Appointment Type:PC OV Appointment Date:07/06/2023 02:00:00 PM Scheduled Provider:DAISY PENN DO Location:[facility] Appointment Type:PC Wellness Medicare [facility] Evaluation + Plan note Future Appointments Appointment Date:10/16/2023 02:30:00 PM Scheduled Provider:DAISY PENN DO Location:[facility] Appointment Type:PC OV [facility] Evaluation + Plan note Future Appointments Appointment Date:02/19/2024 01:30:00 PM Scheduled Provider:DAISY PENN DO Location:[facility] Appointment Type:PC OV [facility] Evaluation + Plan note Future Appointments Appointment Date:06/20/2024 01:00:00 PM Scheduled Provider:DAISY PENN DO Location:[facility] Appointment Type:PC OV Future Scheduled Tests Radiology* BD Bone Density DEXA Axial Skeleton Adult (21 yrs or older) 02/19/24 [facility] Evaluation + Plan note Future Appointments Appointment Date:08/12/2024 01:00:00 PM Scheduled Provider:DAISY PENN DO Location:[facility] Appointment Type:PC OV Future Scheduled Tests Radiology* BD Bone Density DEXA Axial Skeleton Adult (21 yrs or older) 02/19/24 [facility] Evaluation note* Diagnosis Onset Date Resolution Status Admit Date Alcoholic liver disease chronic A ugust 2024 1:17pm Hemangioma of liver chronic Augus t 2024 1:17pm [facility] Work Phone: Hospital course Narrative No data available for this section [facility] Discharge instructions No data available for this section [facility] Progress note No data available for this section [facility] Reason for referral (narrative)No reason for referral information [facility] Work Phone: Summary Purpose Family History No Family History Records Found Relationship Condition Age at Onset Recorded Date/T dejan father Arthritis Unknown Hypertension Unknown Cerebrovascular accident (CVA) Unknown Advance Directives No Advanced Directives Records Found Advance Directive Response Recorded Date/ Time Advance Directives No November 25 10:03pm Chief Complaint and Reason for Visit Chief Complaint Admit Date CIRROHSIS February 09, 2025 9:46 am REDRAW FOR COPPER FROM 02-09-25January 3:09pm Test Result/FU February 19, 2025 1:1 7pm Reason for Visit Admit Date Alcoholic liver disease February 19, 2025 1:17pm Hemangioma of liver February 19, 2025 1:1 7pm Reason for Visit Admit Date Alcoholic liver disease February 19, 2025 1:17pm Hemangioma of liver February 19, 2025 1:1 7pm Metabolic dysfunction-associ ated steatotic liver disease (MASLD) February 19, 2025 1:17pm Additional Source Comments Source Comments (unrecognize d section and content) In the event this informatio n is protected by the Federal Confidentiality of Alcohol and Drug Abuse Patient Records regulations: The Federal rules restrict any use of the information to criminally investigate or prosecute any alcohol or drug abuse patient.[facility] Reason for Visit (unrecogniz ed section and content) Reason Comments Release Of Medical Records INFORMATION SOURCE (unrecogn ized section and content) DATE CREATED AUTHOR 02/09/2022 [facility] DATE CREATED AUTHOR AUTHOR'S ORGANIZ ATION 03/09/2024 [facility] DATE CREATED AUTHOR AUTHOR'S ORGANIZ ATION 10/12/2024 [facility] DATE CREATED AUTHOR AUTHOR'S ORGANIZ ATION 03/06/2025 [facility] Patient Care team informatio n (unrecognized section and content) Team Status: Active Member Role/Relationship Status Dates Dr. Daisy Penn DO Primary Care Provider Active Team Status: Active Member Role/Relationship Status Dates Dr. Sal Murphy MD Attending Provider Active Start: February 09, 2025 Dr. Sal Murphy MD Referring Provider Active Start: February 09, 2025 Dr. Daisy Penn DO Primary Care Provider Active Start: February 09, 2025 Team Status: Active Member Role/Relationship Status Dates Dr. Daisy Penn DO Primary Care Provider Active Start: February 11, 2025 Dr. Sal Murphy MD Attending Provider Active Start: February 11, 2025 Dr. Sal Murphy MD Referring Provider Active Start: February 11, 2025 Team Status: Inactive Member Role/Relationship Status Dates Dr. Daisy Penn DO Primary Care Provider Active Start: February 19, 2025 End: February 19, 2025 Dr. Daisy Penn DO Referring Provider Active Start: February 19, 2025 End: February 19, 2025 Dr. Sal Murphy MD Attending Provider Active Start: February 19, 2025 End: February 19, 2025 Team Status: Inactive Member Role/Relationship Status Dates Dr. Daisy Penn DO Primary Care Provider Active Start: February 11, 2025 End: February 11, 2025 Dr. Sal Murphy MD Attending Provider Active Start: February 11, 2025 End: February 11, 2025 Dr. Sal Murphy MD Referring Provider Active Start: February 11, 2025 End: February 11, 2025 Team Status: Inactive Member Role/Relationship Status Dates Dr. Sal Murphy MD Attending Provider Active Start: February 09, 2025 End: February 09, 2025 Dr. Sal Murphy MD Referring Provider Active Start: February 09, 2025 End: February 09, 2025 Dr. Daisy Penn DO Primary Care Provider Active Start: February 09, 2025 End: February 09, 2025 Goals (unrecognized section and content) Goals may be documented in a n alternate section FOR RECORDS PERTAINING TO PATIENTS WHO ARE OR HAVE BEEN ENROLLED IN A CHEMICAL DEPENDENCY/SUBSTANCEABUSE PROGRAM, SOME INFORMATION MAY BE OMITTED. This clinical summary was aggregated from multiple sources. Caution should be exercised in using it in the provision of clinical care. This summary normalizes information from multiple sources, and as a consequence, information in this document may materially change the coding, format and clinical context of patient data. In addition, data may be omitted in some cases. CLINICAL DECISIONS SHOULD BE BASED ON THE PRIMARY CLINICAL RECORDS. [facility]. provides no warranty or guarantee of the accuracy or completeness of information in this document.
[2025-05-02] MEDS: DiphenhydrAMINE 50 MG/ML Syringe IV (11:07)
[2025-05-02] MEDS: Famotidine 200 MG/20 ML MDV 20 MG in 0.9% Normal Saline (Pres. free 8 ML 300 MG IV (11:07)
== END 2025-05-02 15:34 | disposition home or self-care (01) ==
PROVIDERS: Emergency Provider Emergency Medicine; PCP Family Medicine; Visit Provider Emergency Medicine
DX: T78.3XXA Angioneurotic edema, initial encounter (principal); T46.4X5A Adverse effect of angiotensin-converting-enzyme inhibitors, initial encounter; E78.5 Hyperlipidemia, unspecified; I10 Essential (primary) hypertension; Z79.899 Other long term (current) drug therapy
CPT/HCPCS: 96374; 96375; 99282; A4216